=== PATIENT | male | born 1955 | race Caucasian/White ===

== ENCOUNTER 2017-07-28 15:13 | Inpatient (IN) | payer BC ==
[~2017-07-28] VITALS: Ht 185.4 cm; Wt 226.8 kg
--- NOTE | ~2017-07-28 | H ---
[facility] [place] [address] HISTORY AND PHYSICAL Name: DAWIT RIOJAS Room #: 433-I ADM IN M.R.#: [id number] Admission: 07/28/17 Attend Phys: Dhruv Ortiz MD, FAAF Discharge: Date of : 59 Report #: [id number] THIS REPORT FOR: //name// CC: Dhruv Ortiz DATE OF SERVICE: 07/28/2017 CHIEF COMPLAINT: Cellulitis, left lower leg. HISTORY OF PRESENT ILLNESS: The patient is a 61-year-old white male well known to me, has type 2 diabetes, venous insufficiency, obesity and chronic edema. He developed lower leg swelling bilaterally, worse on the left with cellulitis of the left lower leg 2 days prior to this Emergency Room admission. He was also ill at the time of his arrival and had had fever. Temperature is 99.8 in the Emergency Department, had been higher at home to 103 degrees. Venous Doppler study was negative for clot. He was admitted for IV antibiotics and management of his cellulitis. PAST MEDICAL HISTORY: Hypertension; arthritis; insulin, using diabetes; venous insufficiency; chronic low back pain; hip pain and lower extremity cellulitis. SURGERIES: Endovenous laser ablation of incompetent leg veins, umbilical hernia repair, tonsillectomy, laparoscopic cholecystectomy, toe amputations x 3, right meniscus flap repair and right foot foreign body exploration in 2013. MEDICATIONS: Metoprolol XL 25 mg p.o. daily, Lasix 40 mg p.o. daily, hydrocodone 5/325 one p.o. q. 4 hours p.r.n. pain, Humalog 40 units subQ with meals, glimepiride 4 mg p.o. b.i.d., Tekturna 300 mg p.o. daily, metformin 1000 mg p.o. t.i.d. with meals, multivitamin 1 p.o. daily and vitamin D 1000 units p.o. daily. ALLERGIES: FEELS POORLY WITH PERCOCET. SOCIAL HISTORY: , nonsmoker and nondrinker. 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 FAMILY HISTORY: Positive for diabetes, angina, heart failure, hypertension and heart attacks. REVIEW OF SYSTEMS: GENERAL: Positive for fever, malaise, left lower leg pain, redness and swelling. EYES: No visual changes. ENT: No problems with hearing, swallow, taste or smell. CARDIOVASCULAR: No chest pain or palpitations. RESPIRATORY: No difficulty breathing. [facility] [address] [place] [address] HISTORY AND PHYSICAL Name: DAWIT RIOJAS Room #: 433-I [facility] IN [facility]#: [id number] Admission: 07/28/17 Attend Phys: Dhruv Ortiz MD, FAAF Discharge: Date of : 59 Report #: [id number] GASTROINTESTINAL: No abdominal pain. GENITOURINARY: No problems urinating. MUSCULOSKELETAL: Obese. Bilateral lower extremity edema. Chronic skin changes bilaterally. Acute cellulitis of left lower leg. NEUROLOGIC: No paresis, paralysis or paresthesias. Has bilateral diabetic foot neuropathy. PSYCHIATRIC: No feelings of depression or disturbing thoughts. DERMATOLOGIC: Cellulitis of his left lower leg. Chronic skin changes bilaterally. Remainder of systems review is negative. OBJECTIVE: VITAL SIGNS: Temperature is 37.3, pulse 82, blood pressure 217/101, pulse ox on room air is 96%, respiratory rate is 20. He weighs 226.8 kg or 500 pounds. GENERAL: Pleasant white male, adult, in no acute distress. Speaks full sentences. Engaging in conversation. HEENT: Pupils equal, round and reactive to light and accommodation. Extraocular muscles are intact. Pharynx is unremarkable. NECK: Supple. COR: S1 and S2. CHEST: Clear. ABDOMEN: Soft and nontender. EXTREMITIES: He has bilateral skin changes with 2+ bipedal edema and cellulitis of the left lower leg. NEUROLOGIC: He is intact without focal neurologic deficit. LABORATORY EVALUATION: CBC: White count is 8.9; hemoglobin 14.8; hematocrit 45.2 and platelets 263,000. Chemistry: Sodium 137, potassium 3.9, chloride 101 and CO2 25. BUN 15 and creatinine 1.0. Estimated glomerular filtration rate 76. Glucose 289. Lactic acid is 4.4. Calcium is 9.5. Total bilirubin 0.6, direct bilirubin 0.2. AST is 53, ALT is 79 and alk phos is 69. Total protein 8.0 and albumin 2.8. Lipase is 100. Ultrasound of the left lower extremity was negative for DVT. Chest x-ray: Limited study without definite acute process. ASSESSMENT: Cellulitis of the left lower leg; venous insufficiency; obesity and type 2 diabetes, using insulin. PLAN: Admit to hospital. IV vancomycin started in Emergency Department. Blood cultures obtained. Add moist heat. Follow closely. By: 0218 0345 Dhruv Ortiz MD, FAAFP, FACEP /nt
--- NOTE | ~2017-07-28 | D ---
[facility] [place] [address] DISCHARGE SUMMARY Name: DAWIT RIOJAS Room #: 433-I [facility] IN M.R.#: [id number] Admission: 07/28/17 Attend Phys: [facility]iz MD, [facility] Dis[facility]: 07/31/17 Date of : 59 Report #: [id number] THIS REPORT FOR: //name// CC: Dhruv Ortiz MD DATE OF SERVICE: 07/31/2017 HISTORY: A 61-year-old white male was admitted with worsening redness and swelling of his left lower leg following a bump to the leg two days before admission. His past history included morbid obesity, peripheral venous insufficiency, DM type 2, chronic low back pain and hip pain, previous cellulitis of the legs and endovenous laser ablation of incompetent leg veins, umbilical hernia repair, tonsillectomy, laparoscopic cholecystectomy, toe amputation x 3, right meniscus flap repair and right foot foreign body exploration in 2013. HOSPITAL COURSE: Initial physical revealed an uncomfortable, febrile, overweight white male. He was alert and oriented. BP was high initially at 217/101. Lungs were clear. Cardiac exam negative. Abdomen was obese, soft, and nontender. Legs revealed significant swelling and redness in the left lower leg with some chronic redness in the right lower leg. White count 8900 and hemoglobin 14.8. Sodium 137, potassium 3.9, CO2 of 25, BUN 15, creatinine 1.0, and estimated GFR 76. Blood sugar 289, lactic acid is high at 4.4, calcium 9.5, total bilirubin 0.6. Liver enzyme slightly high, GOT 53, GPT 79, and albumin low at 2.8. Doppler of the left lower leg was negative for DVT. Chest x-ray showed no acute process. The patient was admitted on IV vancomycin and IV fluids. He subsequently improved. His discharge hemoglobin was 13.5, white count 8000. Sodium 136, potassium 3.9, CO2 of 27, BUN 11, creatinine 0.8, estimated GFR 99. Blood sugar in the 200s. GOT and GPT elevated 88 and 180. Albumin low at 2.6. On 07/31/2017, his vital signs were stable. He was afebrile and his blood pressure was 150/79. He was discharged on a low salt diet, on glimepiride 4 mg b.i.d., Tekturna 300 mg daily, metformin 1000 mg t.i.d., multivitamin 1 daily, vitamin D 1000 units daily, hydrocodone 5/325 one to two q.6 h. p.r.n. pain, Humalog 40 units subq before meals, doxycycline 100 mg b.i.d. for at least 10 days, tizanidine 4 mg t.i.d. p.r.n. back pain, furosemide 40 mg daily, metoprolol succinate 25 mg, Toprol-XL 25 mg daily. He is to see Dr. Ortiz within 2 weeks. Followup exam is to keep his left leg elevated. Redness and swelling were improving, but still present at time of discharge. He will watch closely for continued improvement. FINAL DIAGNOSES: [address] [address] DISCHARGE SUMMARY Name: DAWIT RIOJAS Room #: 433-I [facility] IN [facility].#: [id number] Admission: 07/28/17 Attend Phys: Dhruv Ortiz MD, FAAF Discharge: 07/31/17 Date of : 59 Report #: [id number] 1. Cellulitis of left lower extremity. 2. Hypertension. 3. Peripheral venous insufficiency. 4. Moderate protein-calorie malnutrition. 5. Elevated transaminase, probably secondary to fatty liver. 6. Morbid obesity. 7. Type 2 diabetes with vasculopathy. <ELECTRONICALLY SIGNED> By: Luis Alberto Ferguson DO 08/07/17 0749 [id number] [id number] Luis Alberto Ferguson DO /nt
[~2017-07-28 15:13] MED LIST: ACTOS 30 MG TAB30 MG PO; ADIPEX-P37.5 M1 PO; ALTACE10 M1 PO; AMARYL4 MG PO; AMLODIPINE BESY10 MG PO; ANDROGEL SPRAY; ANDROGEL75 GM TOP; DAILY VITE1 EACH PO; GLUCOPHAGE1000 MG PO; GLUCOPHAGE850 MG PO; HUMALOG MI100 UNIT/2 SUBQ; HUMALOG PE100 UNIT/M SUBQ; HYDROCODONE-AP1 EAC6 PO; KEFLEX500 MG PO; LASIX 40 MG TAB40 M1 PO; LEVEMIR SUBQ; METOPROLOL SUCC25 M1 PO; MOTION RELIEF25 MG PO; NEURONTIN 300300 M1 PO; NORCO 5-325 TA1 EACH PO; NOVOLOG100 UNIT/1 SUBQ; PREDNISONE 20 M20 M1 PO; TEKTURNA300 MG PO; TRESIBA FL100 UNIT/1 SQ; VENTOLIN HFA 1818 GM INH; VITAMIN D1000 UNI1 PO; ZOCOR40 MG PO; ZOFRAN 4 MG ORAL4 MG PO
[2017-07-28 15:14] VITALS: BP 217/101
[2017-07-28 16:17] LABS: ABSOLUTE NEUTROPHILS 5.5 thou/uL (1.4-8.2); BASOPHILS 1.3 % (0.0-2.0); EOSINOPHILS 4.1 % (0.0-3.0); HEMATOCRIT 45.2 % (42.0-52.0); HEMOGLOBIN 14.8 gm/dL (14.0-18.0); LYMPHOCYTES 22.2 % (24.0-44.0); MCH 28.5 pg (26.0-34.0); MCHC 32.7 g/dL (28.0-37.0); MCV 87.2 fL (80.0-100.0); MONOCYTES 10.7 % (1.0-8.0); PLATELET COUNT 263 thou/uL (150-400); POLYS 61.7 % (36.0-66.0); RBC 5.18 mil/uL (4.50-6.00); RDW 14.5 % (10.5-14.5); WBC 8.9 thou/uL (4.0-11.0)
[2017-07-28 16:24] LABS: MANUAL DIFF NO
[2017-07-28 16:29] LABS: CALCIUM 9.5 mg/dL (8.5-10.1); POTASSIUM 3.9 mmol/L (3.5-5.1)
[2017-07-28 16:34] LABS: ALBUMIN 2.8 g/dL (3.4-5.0); DIRECT BILIRUBIN 0.2 mg/dL (<0.1-0.3); TOTAL BILIRUBIN 0.6 mg/dL (<0.1-1.0)
[2017-07-28 16:43] VITALS: BP 217/101
[2017-07-28 17:20] VITALS: BP 114/72
[2017-07-28 17:58] VITALS: BP 114/72
[2017-07-28 18:03] VITALS: BP 151/68
[2017-07-28 19:21] VITALS: BP 156/80
[2017-07-29 00:15] VITALS: BP 165/80
[2017-07-29 03:46] VITALS: BP 155/76
[2017-07-29 06:10] LABS: HEMATOCRIT 40.6 % (42.0-52.0); MCH 28.3 pg (26.0-34.0); MCHC 32.1 g/dL (28.0-37.0); RBC 4.61 mil/uL (4.50-6.00); RDW 14.7 % (10.5-14.5)
[2017-07-29 06:27] LABS: CALCIUM 8.9 mg/dL (8.5-10.1); CREATININE 0.8 mg/dL (0.7-1.3); POTASSIUM 3.6 mmol/L (3.5-5.1)
[2017-07-29 08:00] VITALS: BP 161/88
[2017-07-29 16:00] VITALS: BP 180/79
[2017-07-29 19:54] VITALS: BP 183/74
[2017-07-30 03:23] VITALS: BP 180/92
[2017-07-30 07:18] VITALS: BP 167/75
[2017-07-30 15:53] VITALS: BP 179/88
[2017-07-30 19:58] VITALS: BP 170/73
[2017-07-31 03:23] VITALS: BP 150/79
[2017-07-31 06:13] LABS: HEMATOCRIT 42.9 % (42.0-52.0); HEMOGLOBIN 13.5 gm/dL (14.0-18.0); MCH 27.9 pg (26.0-34.0); MCHC 31.6 g/dL (28.0-37.0); MCV 88.3 fL (80.0-100.0); PLATELET COUNT 282 thou/uL (150-400); RBC 4.86 mil/uL (4.50-6.00); RDW 14.2 % (10.5-14.5)
[2017-07-31 06:19] LABS: MANUAL DIFF YES
[2017-07-31 06:31] LABS: ALBUMIN 2.6 g/dL (3.4-5.0); CREATININE 0.8 mg/dL (0.7-1.3); POTASSIUM 3.9 mmol/L (3.5-5.1); TOTAL BILIRUBIN 0.5 mg/dL (<0.1-1.0)
[2017-07-31] MEDS ORDERED: ZANAFLEX4 MG PO (07:59)
[2017-07-31] MEDS ORDERED: DOXYCYCLINE 10100 MG PO (07:59)
[2017-07-31 08:00] VITALS: BP 174/86
[2017-07-31] MEDS ORDERED: TOPROL XL25 MG PO (08:05)
[2017-07-31] MEDS ORDERED: LASIX 40 MG TAB40 M2 PO (08:05)
[2017-07-31 08:08] LABS: ABSOLUTE NEUTROPHILS 4.3 thou/uL (1.4-8.2); METAMYELOCYTES 2 %; TOTAL CELL COUNT 100
[2017-07-31 08:09] LABS: ANISOCYTOSIS SLIGHT
[2017-07-31 11:16] VITALS: BP 174/86
== END 2017-07-31 13:10 | disposition home or self-care (01) | DRG 602 ==
LOC: ER 15:13 → EROBS 16:22 → 4S 16:22 → ENTRNSPT 07-31 12:02 → EDTRNSPTSTS 07-31 12:06 → 4S 07-31 13:10
PROVIDERS: Internal Medicine; Nurse Practitioner
DX: L03.116 Cellulitis of left lower limb (principal); E43 Unspecified severe protein-calorie malnutrition; E87.2 Acidosis; Z68.44 Body mass index [BMI] 60.0-69.9, adult; I10 Essential (primary) hypertension; E11.9 Type 2 diabetes mellitus without complications; G89.29 Other chronic pain; M54.5 Low back pain; I87.2 Venous insufficiency (chronic) (peripheral); E66.01 Morbid (severe) obesity due to excess calories; Z79.899 Other long term (current) drug therapy; Z79.4 Long term (current) use of insulin; Z88.6 Allergy status to analgesic agent; Z90.49 Acquired absence of other specified parts of digestive tract; Z89.429 Acquired absence of other toe(s), unspecified side; Z91.09 Other allergy status, other than to drugs and biological substances; Z83.3 Family history of diabetes mellitus; Z82.49 Family history of ischemic heart disease and other diseases of the circulatory system; Z23 Encounter for immunization
CPT/HCPCS: 10100

== ENCOUNTER 2018-07-18 18:15 | Inpatient (IN) | payer OTHER, BC ==
[~2018-07-18] VITALS: Ht 185.4 cm; Wt 220.0 kg
--- NOTE | ~2018-07-18 | PATH ---
[facility] [address] [place] [address] PATHOLOGY RPT PROCEDURE Name: DAWIT RIOJAS Room #: 221-P DIS IN M.R.#: [id number] Admission: 07/18/18 Date of : 59 Discharge: 07/26/18 Report #: [id number] Path Case #: [id number] [facility] Accession Number: [id number] . 01 Material submitted: . LEFT GREAT TOE . 01 Clinical history: . Osteomyelitis . 02 Diagnosis: Left great toe, amputation: - Marked acute inflammation associated with osteonecrosis, compatible with a history of osteomyelitis. - Overlying skin showing marked acute inflammation, unremarkable as well as ulceration. - Bone at margin viable and unremarkable. (IUV/db; 07/26/18) LBQ/07/26/2018 . 02 Electronically signed: . Josselyn Dixon MD, Pathologist NPI- [id number] . 01 Gross description: . The specimen is received in formalin, labeled "Dawit Riojas, left great toe". Received is an amputated digit measuring 5.9 x 4.2 x 3.6 cm in greatest dimensions. The bone margin is jagged in appearance. The bone and soft tissue margins are inked black. The nail is present displaying a pale thomas to light thomas and severely thickened appearance. At the distal aspect of the specimen, there is a well-circumscribed, irregular in contour and butt-thomas lesion measuring 1.0 x 0.9 cm, which is 3.1 cm from the closest skin margin. The remainder of the epidermis is pale thomas to light thomas and flaky to sloughing in appearance. A full-thickness longitudinal cross-section through the lesion on the distal aspect is submitted in cassettes A1 through A3, from proximal to distal aspects, following decalcification. (CAA; 07/23/2018) QAC/QAC . 02 Pathologist provided ICD-10: M87.872 . 02 CPT . 340993, 135095 Specimen Comment: A courtesy copy of this report has been sent to Specimen Comment: [phone], [phone]. [address] [address] PATHOLOGY RPT PROCEDURE Name: DAWIT RIOJAS Room #: 221-P DIS IN M.R.#: [id number] Admission: 07/18/18 Date of : 59 Discharge: 07/26/18 Report #: [id number] Path Case #: [id number] Specimen Comment: Report sent to / DR RODRIGUES Specimen Comment: A duplicate report has been generated due to demographic updates. Performed at: [address], [place] [id number] MD Ousmane Morin MD Phone: [phone] Performed at: [address], [place], [place] [id number] MD Josselyn Dixon MD Phone: [phone]
--- NOTE | ~2018-07-18 | HC ---
[facility] [place] [address] CONSULTATION Name: DAWIT RIOJAS Room #: 221-P [facility] IN M.R.#: [id number] Admission: 07/18/18 Attend Phys: Dhruv Ortiz MD, [facility] Discharge: 07/26/18 Date of : 59 Report #: [id number] THIS REPORT FOR: //name// CC: Dhruv Ortiz DATE OF SERVICE: 07/19/2018 PERSONAL PHYSICIAN: Dhruv Ortiz MD CHIEF COMPLAINT: Cellulitic left foot and possible osteomyelitis, left great toe. HISTORY OF PRESENT ILLNESS: This is a 62-year-old white male who I have treated in the remote past for previous toe wounds, requiring amputation. The patient states that he bumped his left foot and great toe on a chair approximately 2 months ago and developed a blister. The patient went in and saw his primary care physician and was started on Bactrim times 1 month per the culture result. The patient states that the wound itself actually had been looking good until last evening when it started having drainage coming out of the foot with increased swelling and redness of the left great toe. The patient states that he does have tenderness in the left great toe and the bottom of his foot. The patient denies any other associated wounds at this time. PAST MEDICAL HISTORY: Hypertension, laparoscopic cholecystectomy, toe amputations times 3 in the past, insulin-dependent diabetes, venous insufficiency, chronic low back pain and hip pain due to an old work injury, history of cellulitis of lower extremities. CURRENT MEDICATIONS: Multiple. I reviewed the patient's medication list. DRUG ALLERGIES: OXYCODONE and TAPE. SOCIAL HISTORY: The patient does not smoke or drink alcohol. Lives at home with his . FAMILY HISTORY: Not pertinent to current medical condition. REVIEW OF SYSTEMS: CONSTITUTIONAL: The patient denies fevers or chills. NEUROLOGIC: The patient denies numbness, tingling in arms or legs. EYES: No complaints. ENT: The patient complains of mild sore throat for the past several weeks, but no difficulty swallowing. CARDIAC: The patient denies chest pain, palpitations. Does have chronic lower extremity edema. RESPIRATORY: The patient has a slight cough, nonproductive. Denies shortness [facility] [address] [place] [address] CONSULTATION Name: DAWIT RIOJAS Room #: 221-P [facility] IN .R.#: [id number] Admission: 07/18/18 Attend Phys: Dhruv Ortiz MD, FAAF Discharge: 07/26/18 Date of : 59 Report #: [id number] of breath or wheezes. GASTROINTESTINAL: The patient denies nausea, vomiting or abdominal pain. GENITOURINARY: The patient denies urgency or frequency. MUSCULOSKELETAL: The patient has pain in his left foot. SKIN: There are cellulitic changes of the left foot and enlargement of the left great toe. PHYSICAL EXAMINATION: VITAL SIGNS: Temperature is 36.8, pulse 87, respirations 18, BP 166/75. GENERAL: This is an alert and oriented times 3, obese white male who is in no obvious distress. HEENT: Normocephalic, atraumatic. Mucous membranes are moist. Pupils are round. Sclerae are white. NECK: Supple and nontender without JVD. BACK: Nontender. LUNGS: Clear. ABDOMEN: Soft, obese, otherwise nontender. EXTREMITIES: The patient moves all extremities without difficulty. The patient has 1+ dorsalis pedis and posterior tibial pulses. Evaluation of bilateral feet reveals multiple toe amputations. Evaluation of the left foot reveals an increased area of warmth, tenderness and pus draining from the medial aspect of the left great toe. Toe is tender and has bulbous swelling. Rest of the foot is warm to touch. There does not appear to be any redness extending up the leg. There is some fluctuance around the area of the left great toe. Right foot is without any open ulcerations or signs of infection. NEUROLOGIC: Cranial nerves 2-12 grossly intact. Motor and sensory grossly intact. LABORATORY VALUES: White count 13.5, hemoglobin 13.7. Sed rate 47. Glucose is 313. C-reactive protein is markedly elevated at 164.6. IMAGING DATA: X-ray of the left foot with attention to the left great toe reveals possible osteomyelitis of the distal tuft of the left great toe. MRI is pending as is arterial Dopplers. IMPRESSION: 1. Cellulitis, left foot with concern for osteomyelitis, left great toe. 2. Diabetes mellitus. 3. Obesity. 4. Generalized debility. PLAN: At this time, we will await the MRI results. Dr. Camacho has been consulted to see the patient as well who is actively seeing the patient in the past without amputations. Dr. Velasquez has been consulted for IV antibiotics. RECOMMENDATIONS: We will make sure we maximize the patient's oral protein [address] [address] CONSULTATION Name: DAWIT RIOJAS Room #: 221-P DIS IN M.R.#: [id number] Admission: 07/18/18 Attend Phys: Dhruv Ortiz MD, FAAF Discharge: 07/26/18 Date of : 59 Report #: [id number] supplementation for healing. We will utilize physical and occupational therapy for strengthening. We will continue all other current medications. We will continue to follow the patient while he is here. <ELECTRONICALLY SIGNED> By: Luis Robertson MD 08/03/18 1423 1524 2158 Luis Robertson MD /nt
--- NOTE | ~2018-07-18 | H ---
[facility] [place] [address] HISTORY AND PHYSICAL Name: DAWIT RIOJAS Room #: 457-P ADM IN M.R.#: [id number] Admission: 07/18/18 Attend Phys: Dhruv Ortiz MD, FAAF Discharge: Date of : 59 Report #: [id number] THIS REPORT FOR: //name// CC: Dhruv Robertson MD DATE OF SERVICE: 07/19/2018 CHIEF COMPLAINT: Left foot, left great toe pain. HISTORY OF PRESENT ILLNESS: The patient is a 62-year-old white male well known to me. I have been his primary care doctor for many years. He has type 2 diabetes, hypertension and morbid obesity. He has had difficulty with circulation in his feet with swelling and wounds. He has had several amputations in the past of toes approximately a week before this admission through the Emergency Department, he felt ill while watching some sporting events, after that he developed cellulitis of his foot. This developed into a wound of his left great toe and he felt ill on this day of admission, went to the Emergency Department at [facility] where x-rays showed likely osteomyelitis of his left great toe along with cellulitis of his left great toe and forefoot. He was admitted to hospital and IV antibiotics were instituted. PAST MEDICAL HISTORY: Tonsillectomy, hypertension, umbilical hernia repair, laparoscopic cholecystectomy, amputations of toes x 3, type 2 diabetes using insulin, venous insufficiency, cellulitis of lower extremities, chronic low back pain, hip pain, arthroscopic knee surgery, sleep apnea using CPAP. MEDICATIONS: Doxycycline 100 mg 1 p.o. b.i.d., Zanaflex 4 mg p.o. t.i.d. p.r.n. muscle spasm, Lasix 40 mg 1 p.o. q.a.m., metoprolol succinate 25 mg XL formulation 1 p.o. daily, [place] 5/325 one p.o. q. 4 hours p.r.n. pain, Humalog 40 units subcutaneous with meals, glimepiride 4 mg 1 p.o. b.i.d., Tekturna 300 mg 1 p.o. daily, metformin 1000 mg 1 p.o. b.i.d., multivitamin 1 p.o. daily, vitamin D 1000 international units 1 p.o. daily. ALLERGIES: OXYCODONE. 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 Nonsmoker. FAMILY HISTORY: Brother recently of myocardial infarction, had coronary artery disease. REVIEW OF SYSTEMS: GENERAL: He has felt poorly. [address] [address] HISTORY AND PHYSICAL Name: DAWIT RIOJAS Room #: 457-P [facility] IN M.R.#: [id number] Admission: 07/18/18 Attend Phys: Dhruv Ortiz MD, FAAF Discharge: Date of : 59 Report #: [id number] EYES: No visual changes. ENT: No problems with hearing, swallow, taste or smell. CARDIOVASCULAR: No chest pain or palpitations. RESPIRATORY: No difficulty breathing. GASTROINTESTINAL: No abdominal pain, some malaise. GENITOURINARY: No problems urinating. MUSCULOSKELETAL: Widespread arthritic changes. Morbid obesity, pain, swelling, redness of his left foot, especially great toe and also has a wound. NEUROLOGIC: Some diabetic peripheral neuropathic pain and paresthesias. PSYCHIATRIC: Frustrated, not depressed. DERMATOLOGIC: Cellulitis and left great toe ulcer with osteomyelitis involvement. Remainder of system review is negative. OBJECTIVE: VITAL SIGNS: Temperature 36.9, pulse 101, respirations 20, blood pressure 229/99, pulse ox on room air is 95%. His blood pressure does diminish significantly while in the Emergency Department without antihypertensive therapy per se. NEUROLOGIC: He is alert and oriented x 3. Speaks in full sentences. HEENT: Pupils equal, round, reactive to light and accommodation. Extraocular muscles intact. Pharynx unremarkable. NECK: Supple. COR: S1, S2. CHEST: Clear. ABDOMEN: Soft, nontender. EXTREMITIES: Large and edematous. He does have a crusting over the tip of his left great toe and plantar aspect as well. He has widespread erythema of this toe and forefoot in general. He has chronic stasis dermatitis. He does have distal pulses and his feet are warm. LABORATORY DATA: CBC: White count is 13.5, hemoglobin 13.7, hematocrit 40.6, platelets 248,000. Differential white count 79% segmented neutrophils, 5% lymphocytes, 14% monocytes, 1% eosinophils, 1% basophils, sed rate is 47. Blood cultures are drawn and pending at time of dictation. Chemistry: Sodium 131, potassium 4.6, chloride 95, CO2 of 27, anion gap is 9, BUN 11, creatinine 1.0. Estimated glomerular filtration rate 76. Glucose 313. Lactic acid 2.4, calcium 9.1. C-reactive protein 164.6. X-rays of the left foot done from the Emergency Department shows subtle periosteal reaction involving the terminal tuft of the first digit with overlying soft tissue defect, osteomyelitis of the terminal tuft is a concern. ASSESSMENT: Osteomyelitis, left great toe; cellulitis, left great toe and forefoot; stasis dermatitis; diabetes type 2, using insulin; hypertension; morbid obesity. [facility] [address] [place] [address] HISTORY AND PHYSICAL Name: DAWIT RIOJAS Room #: 457-P ADM IN M.R.#: [id number] Admission: 07/18/18 Attend Phys: Dhruv Ortiz MD, FAAF Discharge: Date of : 59 Report #: [id number] PLAN: Admit to the hospital. Antibiotics started in the Emergency Department. Consult Dr. Joe Velasquez, Infectious Disease specialist; Dr. Luis Robertson, employee placement specialist and Dr. Norris Camacho, orthopedic surgeon. By: 2317 0013 Dhruv Ortiz MD, FAAFP, FACEP /nt
--- NOTE | ~2018-07-18 | O ---
[facility] [place] [address] OPERATIVE REPORT Name: DAWIT RIOJAS Room #: 221-P ADM IN M.R.#: [id number] Admission: 07/18/18 Attend Phys: Dhruv Ortiz MD, FAAF Discharge: Date of : 59 Report #: [id number] THIS REPORT FOR: //name// CC: Dhruv Ortiz DATE OF SERVICE: 07/20/2018 SERVICE: Orthopedics. FACILITY: [facility]. SURGEON: Kashif Jones M.D. BLOCK HAND: Michelle Robles NP PREOPERATIVE DIAGNOSES: 1. Osteomyelitis, left great toe. 2. Nonhealing wound, left great toe. 3. Uncontrolled diabetes mellitus. POSTOPERATIVE DIAGNOSES: 1. Osteomyelitis, left great toe. 2. Nonhealing wound, left great toe. 3. Uncontrolled diabetes mellitus. PROCEDURE: Left first toe amputation. COMPLICATIONS: None. DRAINS: None. SPECIMENS: Great toe with wound culture. ANESTHESIA TYPE: Sedation with first ray block. HISTORY: The patient is a 62-year-old gentleman with a wound of the left great toe that had acute worsening over the weekend. He was admitted to the hospital and placed on IV antibiotics. He had an osteomyelitis of the great toe distal phalanx as well as cellulitis in the forefoot and mid foot. He was treated with rest, elevation and antibiotics and he had some interval improvement of the cellulitis. We had a discussion about ultimate treatment options. We recommended amputation of the toe after consultation with the wound care team as well. PROCEDURE IN DETAIL: After left lower extremity was correctly identified as the operative extremity in the preoperative holding area, the patient was taken to [facility] [address] [place] [address] OPERATIVE REPORT Name: DAWIT RIOJAS Room #: 221-P ADM IN M.R.#: [id number] Admission: 07/18/18 Attend Phys: Dhruv Ortiz MD, FAAF Discharge: Date of : 59 Report #: [id number] the operating room where monitored anesthetic care was initiated with the patient on BiPAP. He is already on an antibiotic regimen, so prophylaxis was not administered. Tourniquet was applied to the left calf. Left leg was prepped in a prepped and draped in standard sterile fashion. Timeout procedure was performed. Total of 16 mL of 0.25% Marcaine was used for a local anesthetic effect providing a first ray regional block by me after sterile prepping and draping. Then, a fishmouth-type incision was made over the proximal phalanx, which was proximal to any of the necrotic tissue. The necrosis involved the entire toe down to the distal phalanx. I did take wound culture specimen of the drainage due to his continued cellulitis to ensure that appropriate antibiotics have been selected. The dissection was taken down to the level of the proximal phalanx. An elevator was used to expose the bone and then, a bone cutter was used to transect the proximal phalanx at the mid shaft position. A rongeur was then used to smooth the rough edges and then, hemostasis was achieved. The wound was copiously irrigated and then it was close with 2-0 nylon sutures in an interrupted mattress suture technique. A well-padded sterile dressing was then applied to the left leg. The patient was awakened from anesthesia and taken to recovery room in stable condition. There were no complications and all counts were recorded as correct. <ELECTRONICALLY SIGNED> By: Kashif Jones MD 07/25/182031 16 54 Kashif Jones MD /nt
--- NOTE | ~2018-07-18 | HC ---
[facility] [place] [address] CONSULTATION Name: DAWIT RIOJAS Room #: 457-P [facility] IN M.R.#: [id number] Admission: 07/18/18 Attend Phys: Dhruv Ortiz MD, FAAF Discharge: Date of : 59 Report #: [id number] THIS REPORT FOR: //name// CC: Dhruv Ortiz DATE OF SERVICE: 07/19/2018 ATTENDING PHYSICIAN: Dhruv Ortiz MD. REASON FOR CONSULTATION: Left diabetic foot infection. HISTORY OF PRESENT ILLNESS: A 62-year-old white man who is admitted with cellulitic changes, left foot and possible osteomyelitis, left big toe. Problem ongoing for several days to weeks, much worse in the last couple of days. Has received some treatment with Bactrim before. PAST MEDICAL AND SURGICAL HISTORY: Tonsillectomy. Hypertension. Umbilical hernia repair. Laparoscopic cholecystectomy. Previous toes amputation. Venous insufficiency. Stasis dermatitis of lower extremities. DRUG ALLERGIES: OXYCODONE. MEDICATIONS: The patient is currently on treatment with vancomycin 1250 mg IV every 8 hours, has received Zosyn 4.5 grams IV single dose. He is receiving some intravenous normal saline 500 mL. SOCIAL HISTORY: See H and P, old records. FAMILY HISTORY: See H and P, old records. REVIEW OF SYSTEMS: As above and see H and P. PHYSICAL EXAMINATION: GENERAL: Morbidly obese white man, not toxic looking, no distress. VITAL SIGNS: Temperature 98.2, pulse 87, respirations 18, BP 166/75, height 6 feet 1 inch, weight 485 pounds. HEENMT: Within range. NECK: Short, difficult to examine. LUNGS: Clear. HEART: S1, S2. No gallop or murmur. ABDOMEN: Soft, no masses or megaly. GENITALIA AND RECTAL: Deferred. EXTREMITIES: Stasis dermatitis both lower extremities. The left foot presents drainage on the lateral aspect of the left big toe. The left big toe is rather swollen, possible with underlying osteomyelitis despite negative plain x-rays. Status post partial amputation, left second toe and amputation, left third toe. [address] [address] CONSULTATION Name: DAWIT RIOJAS Room #: 457-P ADM IN M.R.#: [id number] Admission: 07/18/18 Attend Phys: Dhruv Ortiz MD, FAAF Discharge: Date of : 59 Report #: [id number] I cannot detect peripheral pulses. The right foot exam revealed remote amputations of the right second and third toes. NEUROLOGIC: Grossly within normal limits. LABORATORY DATA: Sodium 131, potassium 4.6, BUN 16, creatinine 1, glucose 313. Lactic acid 2.4 on admission. CRP 164.6 mg/dL. WBC 13,500, hemoglobin 13.7 g/dL, platelets 248,000. ESR 47 mm per hour. No urinalysis. Blood cultures were obtained. No wound culture, we will obtain those. RADIOLOGY EVALUATION: X-ray of the foot revealed no obvious bony process, subtle periosteal reaction involving terminal tuft first digit with overlying soft tissues defects noted. ASSESSMENT: 1. Left diabetic foot infection with possible osteomyelitis, left big toe. 2. Remote amputations of left second, third and right second and third toes. 3. Stasis dermatitis. 4. Diabetes mellitus. 5. Morbid obesity. SUGGESTIONS: Recommend discontinue vancomycin and Zosyn, treat the patient with combination of meropenem and Zyvox, proceed with MRI and ultrasound arterial circulation. If osteomyelitis, possibly amputation may be the recommendation. Dr. Ortiz, thank you for requesting my suggestions. <ELECTRONICALLY SIGNED> By: Joe Velasquez MD 07/20/18 0848 1138 1243 Joe Velasquez MD /nt
[~2018-07-18 18:15] MED LIST changes: +DOXYCYCLINE 10100 MG PO; +LASIX 40 MG TAB40 M2 PO; +NORCO 10-325 T1 EACH PO; +TOPROL XL25 MG PO; +ZANAFLEX4 MG PO
[2018-07-18 18:16] VITALS: BP 229/99
[2018-07-18 20:21] LABS: HEMATOCRIT 40.6 % (42.0-52.0); HEMOGLOBIN 13.7 gm/dL (14.0-18.0); MCH 29.4 pg (26.0-34.0); MCHC 33.6 g/dL (28.0-37.0); MCV 87.4 fL (80.0-100.0); PLATELET COUNT 248 thou/uL (150-400); RBC 4.65 mil/uL (4.50-6.00); RDW 13.9 % (10.5-14.5); WBC 13.5 thou/uL (4.0-11.0)
[2018-07-18 20:32] LABS: CALCIUM 9.1 mg/dL (8.5-10.1); POTASSIUM 4.6 mmol/L (3.5-5.1)
[2018-07-18 20:54] LABS: ABSOLUTE NEUTROPHILS 10.7 thou/uL (1.4-8.2)
[2018-07-18 21:45] VITALS: BP 165/79
[2018-07-18 21:52] VITALS: BP 162/52
[2018-07-18 22:45] VITALS: BP 139/64
[2018-07-19 03:08] VITALS: BP 131/55
[2018-07-19 07:30] VITALS: BP 166/75
[2018-07-19 16:27] VITALS: BP 187/69
[2018-07-19 19:43] VITALS: BP 181/84
[2018-07-20 02:17] VITALS: BP 152/65
[2018-07-20 05:57] LABS: HEMATOCRIT 39.3 % (42.0-52.0); MCH 29.3 pg (26.0-34.0); MCHC 33.2 g/dL (28.0-37.0); MCV 88.3 fL (80.0-100.0); PLATELET COUNT 259 thou/uL (150-400); RBC 4.45 mil/uL (4.50-6.00); RDW 14.3 % (10.5-14.5); WBC 12.6 thou/uL (4.0-11.0)
[2018-07-20 06:03] LABS: CALCIUM 9.2 mg/dL (8.5-10.1); POTASSIUM 4.3 mmol/L (3.5-5.1)
[2018-07-20 06:32] LABS: ABSOLUTE NEUTROPHILS 8.9 thou/uL (1.4-8.2)
[2018-07-20 06:33] LABS: PLATELET ESTIMATE NORMAL
[2018-07-20 08:00] VITALS: BP 186/74
[2018-07-20 19:06] VITALS: BP 186/58
[2018-07-21] VITALS (9 sets, daily range): BP systolic 145–1303; BP diastolic 59–79
[2018-07-22 03:46] LABS: HEMATOCRIT 38.4 % (42.0-52.0); HEMOGLOBIN 12.5 gm/dL (14.0-18.0); MCH 28.6 pg (26.0-34.0); MCHC 32.7 g/dL (28.0-37.0); MCV 87.7 fL (80.0-100.0); RBC 4.38 mil/uL (4.50-6.00); RDW 14.6 % (10.5-14.5); WBC 8.8 thou/uL (4.0-11.0)
[2018-07-22 03:59] LABS: CALCIUM 8.7 mg/dL (8.5-10.1); CREATININE 0.8 mg/dL (0.7-1.3); POTASSIUM 4.2 mmol/L (3.5-5.1)
[2018-07-22 05:44] VITALS: BP 146/69
[2018-07-22 08:09] VITALS: BP 162/73
[2018-07-22 14:00] VITALS: BP 194/76
[2018-07-22 19:32] VITALS: BP 156/70
[2018-07-23 04:59] VITALS: BP 149/74
[2018-07-23 07:31] VITALS: BP 151/64
[2018-07-23 14:43] VITALS: BP 157/74
[2018-07-23 19:35] VITALS: BP 163/80
[2018-07-24 06:34] VITALS: BP 162/62
[2018-07-24 07:45] VITALS: BP 149/60
[2018-07-24 07:58] LABS: ABSOLUTE NEUTROPHILS 5.1 thou/uL (1.4-8.2); BASOPHILS 1.3 % (0.0-2.0); EOSINOPHILS 5.1 % (0.0-3.0); HEMATOCRIT 38.9 % (42.0-52.0); HEMOGLOBIN 12.7 gm/dL (14.0-18.0); LYMPHOCYTES 21.2 % (24.0-44.0); MCH 28.9 pg (26.0-34.0); MCHC 32.8 g/dL (28.0-37.0); MCV 88.2 fL (80.0-100.0); MONOCYTES 9.8 % (1.0-8.0); PLATELET COUNT 336 thou/uL (150-400); POLYS 62.6 % (36.0-66.0); RBC 4.41 mil/uL (4.50-6.00); RDW 14.4 % (10.5-14.5); WBC 8.2 thou/uL (4.0-11.0)
[2018-07-24 08:08] LABS: ALBUMIN 2.1 g/dL (3.4-5.0); CREATININE 0.8 mg/dL (0.7-1.3); POTASSIUM 4.2 mmol/L (3.5-5.1); TOTAL BILIRUBIN 0.4 mg/dL (<0.1-1.0); TOTAL PROTEIN 7.2 g/dL (6.4-8.2)
[2018-07-24 13:14] VITALS: BP 182/89
[2018-07-24 19:48] VITALS: BP 159/94
[2018-07-24 20:34] VITALS: BP 178/81
[2018-07-24 22:25] VITALS: BP 185/89
[2018-07-25 07:37] VITALS: BP 164/71
[2018-07-25 20:05] VITALS: BP 158/79
[2018-07-26 08:16] VITALS: BP 172/69
[2018-07-26] MEDS ORDERED: XARELTO10 MG PO (08:20)
[2018-07-26 14:53] VITALS: BP 172/69
== END 2018-07-26 18:54 | disposition home or self-care (01) | DRG 617 ==
LOC: ER 18:15 → 4W 21:21 → EROBS 21:21 → 4W 22:24 → SICU 07-24 12:25 → ENTRNSPT 07-26 16:37 → SICU 07-26 18:54
PROVIDERS: Family Medicine; Orthopaedic Surgery Sports Medicine; Student in an Organized Health Care Education/Training Program
PROC: 0Y6Q0Z1 Detachment at Left 1st Toe, High, Open Approach (ICD-10-PCS; principal; 2018-07-20)
PROC: 05HD33Z Insertion of Infusion Device into Right Cephalic Vein, Percutaneous Approach (ICD-10-PCS; 2018-07-22)
DX: E11.69 Type 2 diabetes mellitus with other specified complication (principal); L03.116 Cellulitis of left lower limb; M86.8X7 Other osteomyelitis, ankle and foot; Z68.44 Body mass index [BMI] 60.0-69.9, adult; I13.0 Hypertensive heart and chronic kidney disease with heart failure and stage 1 through stage 4 chronic kidney disease, or unspecified chronic kidney disease; G89.29 Other chronic pain; M54.5 Low back pain; M25.559 Pain in unspecified hip; I87.2 Venous insufficiency (chronic) (peripheral); E66.01 Morbid (severe) obesity due to excess calories; E11.65 Type 2 diabetes mellitus with hyperglycemia; J47.9 Bronchiectasis, uncomplicated; E11.22 Type 2 diabetes mellitus with diabetic chronic kidney disease; I50.9 Heart failure, unspecified; N18.9 Chronic kidney disease, unspecified; I48.0 Paroxysmal atrial fibrillation; E11.40 Type 2 diabetes mellitus with diabetic neuropathy, unspecified; B95.61 Methicillin susceptible Staphylococcus aureus infection as the cause of diseases classified elsewhere; B95.1 Streptococcus, group B, as the cause of diseases classified elsewhere; Z90.49 Acquired absence of other specified parts of digestive tract; B96.4 Proteus (mirabilis) (morganii) as the cause of diseases classified elsewhere; Z79.4 Long term (current) use of insulin; Z88.6 Allergy status to analgesic agent; Z89.421 Acquired absence of other right toe(s); Z28.21 Immunization not carried out because of patient refusal; Z79.899 Other long term (current) drug therapy
CPT/HCPCS: 10045; 15002; 27000; 50010; 50101; 50386; 56525; 56527; 57091; 57180; 62110; 62850; 70005

== ENCOUNTER → 2018-08-16 | Outpatient (CLI) | payer OTHER, BC ==
[~2018-08-16] MED LIST changes: +XARELTO10 MG PO
== END ==
LOC: HYPER 08-09 09:14
DX: T87.89 Other complications of amputation stump (principal); E11.69 Type 2 diabetes mellitus with other specified complication; M86.09 Acute hematogenous osteomyelitis, multiple sites; E11.610 Type 2 diabetes mellitus with diabetic neuropathic arthropathy; E11.65 Type 2 diabetes mellitus with hyperglycemia; E66.01 Morbid (severe) obesity due to excess calories; G47.30 Sleep apnea, unspecified; I10 Essential (primary) hypertension; I87.2 Venous insufficiency (chronic) (peripheral); Z79.4 Long term (current) use of insulin; Z68.44 Body mass index [BMI] 60.0-69.9, adult; Z79.84 Long term (current) use of oral hypoglycemic drugs; Y83.5 Amputation of limb(s) as the cause of abnormal reaction of the patient, or of later complication, without mention of misadventure at the time of the procedure

== ENCOUNTER → 2018-09-06 | Outpatient (CLI) | payer OTHER, BC | LOC: HYPER 06:52 | DX: T87.89 Other complications of amputation stump (principal); S90.425A Blister (nonthermal), left lesser toe(s), initial encounter; E11.69 Type 2 diabetes mellitus with other specified complication; M86.09 Acute hematogenous osteomyelitis, multiple sites; E11.610 Type 2 diabetes mellitus with diabetic neuropathic arthropathy; E11.65 Type 2 diabetes mellitus with hyperglycemia; E66.01 Morbid (severe) obesity due to excess calories; G47.30 Sleep apnea, unspecified; I10 Essential (primary) hypertension; I87.2 Venous insufficiency (chronic) (peripheral); Z79.84 Long term (current) use of oral hypoglycemic drugs; Z79.4 Long term (current) use of insulin; Z68.44 Body mass index [BMI] 60.0-69.9, adult; X58.XXXA Exposure to other specified factors, initial encounter; Y93.89 Activity, other specified; Y92.89 Other specified places as the place of occurrence of the external cause; Y99.8 Other external cause status; Y83.5 Amputation of limb(s) as the cause of abnormal reaction of the patient, or of later complication, without mention of misadventure at the time of the procedure ==

== ENCOUNTER → 2018-09-27 | Outpatient (CLI) | payer OTHER, BC | LOC: HYPER 09-20 06:56 | DX: T87.89 Other complications of amputation stump (principal); S90.425D Blister (nonthermal), left lesser toe(s), subsequent encounter; E11.610 Type 2 diabetes mellitus with diabetic neuropathic arthropathy; E11.65 Type 2 diabetes mellitus with hyperglycemia; E11.69 Type 2 diabetes mellitus with other specified complication; M86.09 Acute hematogenous osteomyelitis, multiple sites; E66.01 Morbid (severe) obesity due to excess calories; I87.2 Venous insufficiency (chronic) (peripheral); I10 Essential (primary) hypertension; G47.30 Sleep apnea, unspecified; Z79.4 Long term (current) use of insulin; Z79.84 Long term (current) use of oral hypoglycemic drugs; Z68.44 Body mass index [BMI] 60.0-69.9, adult; X58.XXXD Exposure to other specified factors, subsequent encounter; Y83.5 Amputation of limb(s) as the cause of abnormal reaction of the patient, or of later complication, without mention of misadventure at the time of the procedure ==

== ENCOUNTER 2019-03-01 12:47 | Emergency (ER) | payer OTHER, BC ==
[~2019-03-01] VITALS: Ht 185.4 cm; Wt 214.3 kg
[2019-03-01 13:44] LABS: ABSOLUTE NEUTROPHILS 4.7 thou/uL (1.4-8.2); EOSINOPHILS 6.1 % (0.0-3.0); HEMATOCRIT 41.2 % (42.0-52.0); HEMOGLOBIN 13.5 gm/dL (14.0-18.0); LYMPHOCYTES 24.4 % (24.0-44.0); MCHC 32.7 g/dL (28.0-37.0); MCV 88.6 fL (80.0-100.0); MONOCYTES 10.1 % (1.0-8.0); PLATELET COUNT 242 thou/uL (150-400); POLYS 58.4 % (36.0-66.0); RBC 4.65 mil/uL (4.50-6.00); RDW 14.7 % (10.5-14.5)
[2019-03-01 13:49] LABS: ANION GAP 9 mmol/L (7-16); BUN 20 mg/dL (7-18); CALCIUM 9.3 mg/dL (8.5-10.1); CHLORIDE 103 mmol/L (98-107); CO2 28 mmol/L (21-32); CREATININE 0.9 mg/dL (0.7-1.3); GLUCOSE 93 mg/dL (74-106); SODIUM 140 mmol/L (136-145)
[2019-03-01 13:58] LABS: ALBUMIN 3.1 g/dL (3.4-5.0); SGOT 25 U/L (15-37); SGPT 47 U/L (30-65); TOTAL BILIRUBIN 0.4 mg/dL (<0.1-1.0); TOTAL PROTEIN 7.6 g/dL (6.4-8.2); TROPONIN-I <0.06 ng/mL (<0.06)
[2019-03-01 15:00] VITALS: BP 177/70
--- NOTE | 2019-03-02 07:51 | EKG ---
[place] [address] [employer] [place] [address] ELECTROCARDIOGRAM REPORT Name: DAWIT RIOJAS Room #: DEP ELIZA Koo#: [id number] ������������������ Admission: 03/01/19 ������������������ Attend Phys: Discharge: 03/01/19 ������������������ Date of : 59 Report #: [id number] ����������������������������������������������������������������� [id number] THIS REPORT FOR: //name// [facility] ED Test Date: 2019-03-01 Test Time: 13:10:48 Pat Name: DAWIT RIOJAS Department: Room: Gender: Financial Professional: [facility] : 1955 Requested By: Kashif Umana Order Number: [id number] MD: German Almodovar Measurements Intervals [place] Rate: 72 P: 22 [place]: 186 QRS: -41 QRSD: 109 T: 17 QT: 400 QTc: 438 Interpretive Statements Sinus rhythm Left anterior hemiblock Poor R wave progression Right ventricular conduction delay Compared to ECG 10/02/2016 09:36:58 no significant change was found Electronically Signed On 03-02-2019 7:50:58 CDT by German Almodovar [email or web address] ��������������������������������������������� <ELECTRONICALLY SIGNED> ���������������������������������������� By: German Almodovar MD, [facility] ��������������������������������������������� 03/02/19 0750 1310 1310 German Almodovar MD, FACC /EPI
== END 2019-03-01 15:00 | disposition home or self-care (01) ==
LOC: ER 12:47
PROVIDERS: Emergency Medicine
DX: R20.2 Paresthesia of skin (principal); R51 Headache; I10 Essential (primary) hypertension; E11.9 Type 2 diabetes mellitus without complications; Z90.49 Acquired absence of other specified parts of digestive tract; Z88.5 Allergy status to narcotic agent

== ENCOUNTER 2019-06-24 06:50 | Inpatient (IN) | payer OTHER, BC ==
[~2019-06-24] VITALS: Ht 185.4 cm; Wt 186.0 kg
--- NOTE | ~2019-06-24 | HC ---
[facility] [place] [address] [place] [address] CONSULTATION Name: DAWIT RIOJAS Room #: 438-P [facility] IN M.R.#: [id number] Admission: 06/24/19 Attend Phys: Ross Webb MD, F Discharge: Date of : 59 Report #: [id number] THIS REPORT FOR: //name// CC: Dhruv Webb MD DATE OF SERVICE: 06/24/2019 CHIEF COMPLAINT: Morbid obesity, now status post gastric sleeve surgery by Dr. Webb. HISTORY OF PRESENT ILLNESS: The patient is a 63-year-old white male, well known to me, as I have provided his primary medical care for many years. He is morbidly obese, has type 2 diabetes and hypertension. This morning, he underwent gastric sleeve bariatric surgery by Dr. Ross Webb and I am asked to provide medical management postoperatively. He is feeling well in anticipation of the surgery. Over the past year, he has lost approximately 126 pounds on his own with the aids of some medications as well as u a protein shake. Blood sugar and blood pressure are both very well controlled leading up to this surgery. PAST MEDICAL AND SURGICAL HISTORY: Type 2 diabetes; hypertension; obesity; low back injury; old work injury with chronic low back pain; arthroscopic knee surgery with right meniscus flap repair; sleep apnea, uses CPAP; vitamin D deficiency; venous insufficiency; C5 disease (healed leg ulcers), endovenous laser ablation surgery, toe amputations x3; tonsillectomy; umbilical hernia repair; laparoscopic cholecystectomy and I and D, right foot foreign body, 06/09/2014. MEDICATIONS: Lasix 40 mg 1 p.o. q.a.m., Toprol-XL 25 mg 1 p.o. daily, Humalog insulin 40 units subcutaneous t.i.d. with meals, glimepiride 4 mg 1 p.o. b.i.d. Tekturna 300 mg 1 p.o. daily, metformin 1000 mg 1 p.o. b.i.d., multivitamin 1 p.o. daily, vitamin D 1000 International Units p.o. daily and Zanaflex 4 mg 1 p.o. b.i.d. p.r.n. back spasms. ALLERGIES: To TAPE and OXYCODONE. FAMILY HISTORY: Positive for arthritis, diabetes, heart disease and hypertension. Father at age 49, cardiopulmonary arrest, had been a heavy smoker and worked 3 jobs. 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 Nonsmoker, nondrinker. REVIEW OF SYSTEMS: [address] [address] CONSULTATION Name: DAWIT RIOJAS Room #: 438-P [facility] IN M.R.#: [id number] Admission: 06/24/19 Attend Phys: Ross Webb MD, F Discharge: Date of : 59 Report #: [id number] GENERAL: No fever, chills, nausea, vomiting, diarrhea. EYES: No visual changes. ENT: No problems with hearing, swallow, taste or smell. CARDIOVASCULAR: No chest pain or palpitations. RESPIRATORY: No difficulty breathing. GASTROINTESTINAL: Postoperative incision pain and pain associated with the surgery, well controlled presently with Dilaudid. GENITOURINARY: No difficulty urinating. MUSCULOSKELETAL: Widespread polyarticular joint pain. NEUROLOGIC: Bilateral lower leg paresthesias. PSYCHIATRIC: No disturbing thoughts. DERMATOLOGIC: No disturbing lesions or rash. He does have chronic stasis dermatitis of both lower legs, better since his dramatic weight loss. Remainder of system review is negative. OBJECTIVE: VITAL SIGNS: Stable. He is afebrile. Blood pressure slightly elevated, 156/86. He is in no acute distress. HEENT: Pupils equal, round, reactive to light and accommodation. Extraocular muscles intact. Pharynx unremarkable. NECK: Supple. COR: S1, S2. CHEST: Clear. ABDOMEN: Soft, obese. Nontender to light palpation. EXTREMITIES: Chronic stasis changes, several toes surgically absent. He has acrocyanosis of both lower legs. His legs are large, but not edematous. LABORATORY DATA: Reviewed. CBC and CMP are normal. ASSESSMENT: Morbid obesity, now status post gastric sleeve surgery by Dr. Webb earlier today, type 2 diabetes, hypertension, venous insufficiency, sleep apnea, using CPAP. PLAN/RECOMMENDATIONS: Agree with present regimen. He is n.p.o. following his surgery. When he is able to eat, need to monitor blood sugars, currently receiving normal saline at 125 mL an hour. A.m. labs, CBC, BMP already ordered. Will likely go home soon if able to tolerate p.o., very likely tomorrow. Thank you for the consultation. We will follow closely. By: 2318 0024 Dhruv Ortiz MD, FAAFP, FACEP /nt
[~2019-06-24 06:50] MED LIST changes: +VITAMIN D2000 UNIT PO
[2019-06-24 07:30] LABS: HEMATOCRIT 45.1 % (42.0-52.0); HEMOGLOBIN 14.9 gm/dL (14.0-18.0); MCH 29.1 pg (26.0-34.0); MCV 88.2 fL (80.0-100.0); RBC 5.11 mil/uL (4.50-6.00); RDW 14.6 % (10.5-14.5); WBC 7.9 thou/uL (4.0-11.0)
[2019-06-24 07:36] LABS: CALCIUM 9.5 mg/dL (8.5-10.1); CREATININE 0.8 mg/dL (0.7-1.3)
[2019-06-24 07:42] LABS: ALBUMIN 3.8 g/dL (3.4-5.0); TOTAL BILIRUBIN 0.8 mg/dL (<0.1-1.0); TOTAL PROTEIN 8.3 g/dL (6.4-8.2)
[2019-06-24 08:06] VITALS: BP 159/75
[2019-06-24 15:57] VITALS: BP 159/75
--- NOTE | 2019-06-24 16:17 | NUR ---
INITIAL ASSESMENT: Pt evaluated for d/c planning needs. Reviewed chart and spoke with nurse, pt, spouse and several family members. Pt lives in house with spouse and was independent with ADL's prior to admission. Pt had gastric sleeve surgery today. Received telephone call from [facility] stating they are signed up to see pt on d/c from hospital. Pt and spouse are agreeable with plans. Pt has cane, walker, w/c and CPAP at home. Plan is for pt to return home with [facility] [facility]. Please fax discharge orders and discharge summary to [facility]. PPS [phone]; fax [phone]
--- NOTE | 2019-06-24 17:58 | NUR ---
PT CAME FROM SURGERY. S/P LAP GASTRIC SLEEVE WITH . WAS CONSULTED FOR MEDICAL MANAGEMENT AND SEEN PT AT BEDSIDE. VANDANA TAMEZ ON, SCD ON. STRICT NPO FOR NOW. AT BEDSIDE AT ALL TIMES. LAP SITES X 5 CDI WITH DERMABOND. NO S/S ACUTE DISTRESS NOTED OR REPORTED AT THIS TIME. WILL CONT TO MONITOR FOR ANY CHANGES IN CONDITION.
[2019-06-24 19:25] VITALS: BP 155/66
--- NOTE | 2019-06-25 03:05 | NUR ---
ASSESSMENT COMPLETED.PT C/O GEN PAIN,MANAGED WITH MED.PT UP WITH ASSIST X1 AND WALKER TO BSC,PT DID WELL.PT'S AT BEDSIDE.PT WITH FIVE LAP SITES,C/D/I. IVF AND IV ABX GIVEN ORDERED.PT ABLE TO MAKE HIS NEEDS KNOWN.PT RESTING ON HIS BED AT THIS TIME.CALL LIGHT WITHIN REACH.
[2019-06-25 06:48] LABS: ABSOLUTE NEUTROPHILS 8.1 thou/uL (1.4-8.2); BASOPHILS 0.4 % (0.0-2.0); EOSINOPHILS 0.2 % (0.0-3.0); HEMATOCRIT 42.9 % (42.0-52.0); HEMOGLOBIN 13.8 gm/dL (14.0-18.0); LYMPHOCYTES 14.7 % (24.0-44.0); MCHC 32.1 g/dL (28.0-37.0); MCV 90.1 fL (80.0-100.0); MONOCYTES 9.8 % (1.0-8.0); PLATELET COUNT 272 thou/uL (150-400); POLYS 74.9 % (36.0-66.0); RBC 4.76 mil/uL (4.50-6.00); WBC 10.8 thou/uL (4.0-11.0)
[2019-06-25 06:51] LABS: CALCIUM 8.7 mg/dL (8.5-10.1); CREATININE 0.9 mg/dL (0.7-1.3); POTASSIUM 3.8 mmol/L (3.5-5.1)
[2019-06-25 16:04] VITALS: BP 159/75
--- NOTE | 2019-06-28 13:07 | PATH ---
[facility] [address] [place] [address] PATHOLOGY RPT PROCEDURE Name: DAWIT RIOJAS Room #: 438-P DIS IN M.R.#: [id number] Admission: 06/24/19 Date of : 59 Discharge: 06/25/19 Report #: [id number] Path Case #: [id number] [facility] Accession Number: [id number] . 01 Material submitted: . stomach - GASTRIC SLEEVE . 01 Clinical history: . Morbid (severe) obesity due to excess calories . 02 Diagnosis: Stomach, gastric sleeve, laparoscopic sleeve gastrectomy: - No significant diagnostic abnormalities present, history of morbid obesity. (IUV:pit; 06/28/2019) QTP 06/28/2019 1103 Local . 02 Electronically signed: . Josselyn Dixon MD, Pathologist NPI- [id number] . 01 Gross description: . The specimen is received in formalin, labeled "Dawit Riojas, gastric sleeve". Received is a partial gastrectomy specimen with a stapled margin of resection measuring 21.8 x 5.8 x 4.3 cm in greatest dimensions. The serosal surface is pink-thomas to pink-butt and shaggy in appearance. Opening the specimen reveals a butt-thomas, granular-appearing mucosa with normal rugal folds. No distinct nodules or lesions are noted grossly. The specimen is submitted representatively in cassette A1. (CAA; 06/27/2019) QAC/QAC 06/27/2019 0919 Local . 02 Pathologist provided ICD-10: E66.01 . 02 CPT . 906631 Specimen Comment: A courtesy copy of this report has been sent to [phone], [phone] Specimen Comment: [phone] Specimen Comment: Report sent to / DR RODRIGUES Performed at: [address] [id number] MD Ousmane Morin MD Phone: [phone] Performed at: [address] [address] PATHOLOGY RPT PROCEDURE Name: VANDANA RIOJASJACOB CONRAD Room #: 438-P DIS IN M.R.#: [id number] Admission: 06/24/19 Date of : 59 Discharge: 06/25/19 Report #: [id number] Path Case #: [id number] [address] [place], [place] [id number] MD Josselyn Dixon MD Phone: [phone]
== END 2019-06-25 16:30 | disposition home health service (06) | DRG 621 ==
LOC: TBA 06:50 → PRE 09:11 → 4S 12:28 → PRE 13:02 → 4S 06-25 16:30
PROVIDERS: ADMIT Surgery
DX: E66.01 Morbid (severe) obesity due to excess calories (principal); Z68.43 Body mass index [BMI] 50.0-59.9, adult; M19.90 Unspecified osteoarthritis, unspecified site; K80.20 Calculus of gallbladder without cholecystitis without obstruction; E11.9 Type 2 diabetes mellitus without complications; I10 Essential (primary) hypertension; G89.29 Other chronic pain; M54.5 Low back pain; Z89.429 Acquired absence of other toe(s), unspecified side; Z90.49 Acquired absence of other specified parts of digestive tract; Z88.6 Allergy status to analgesic agent; Z82.61 Family history of arthritis; Z83.3 Family history of diabetes mellitus; Z82.49 Family history of ischemic heart disease and other diseases of the circulatory system
CPT/HCPCS: 10102; 50010; 50101; 50222; 50249; 50386; 50555; 50739; 50740; 50962; 51436; 51437; 51489; 52182; 52265; 53307; 53311; 54022; 54118; 55245; 56462; 56525; 56526; 57092; 62110; 62900; 70005

== ENCOUNTER 2019-08-07 21:01 | Inpatient (IN) | payer OTHER, BC ==
[~2019-08-07] VITALS: Ht 185.4 cm; Wt 169.2 kg
[2019-08-07 21:04] VITALS: BP 130/79
[2019-08-07] MEDS ORDERED: ALTACE 1.25 M1.25 MG (21:09)
[2019-08-07] MEDS ORDERED: HUMALOG100 UNIT/1 SUBQ (21:10)
[2019-08-07 21:41] LABS: ABSOLUTE NEUTROPHILS 8.3 thou/uL (1.4-8.2); BASOPHILS 1.4 % (0.0-2.0); EOSINOPHILS 0.8 % (0.0-3.0); HEMOGLOBIN 15.8 gm/dL (14.0-18.0); LYMPHOCYTES 18.8 % (24.0-44.0); MONOCYTES 10.4 % (1.0-8.0); PLATELET COUNT 211 thou/uL (150-400); POLYS 68.6 % (36.0-66.0); RBC 5.46 mil/uL (4.50-6.00); RDW 14.5 % (10.5-14.5); WBC 12.1 thou/uL (4.0-11.0)
[2019-08-07 21:48] LABS: ANION GAP 9 mmol/L (7-16); BUN 14 mg/dL (7-18); CALCIUM 9.7 mg/dL (8.5-10.1); CHLORIDE 101 mmol/L (98-107); CO2 24 mmol/L (21-32); GLUCOSE 126 mg/dL (74-106); POTASSIUM 3.7 mmol/L (3.5-5.1); SODIUM 134 mmol/L (136-145)
--- NOTE | 2019-08-07 21:53 | NUR ---
RT NOTIFIED ONCE AGAIN FOR BREATHING TREATMENT. STATED, "I KNOW" AND THEN HUNG UP. ARRIVED SHORTLY AFTER TO BEDSIDE
[2019-08-07 21:59] LABS: APTT 32.3 Seconds (24.5-32.8); INR 1.6; PROTIME 17.1 Seconds (9.3-11.4)
[2019-08-07 22:00] LABS: ALBUMIN 3.2 g/dL (3.4-5.0); MAGNESIUM 1.7 mg/dL (1.8-2.4); PHOSPHORUS 2.8 mg/dL (2.5-4.9); SGOT 29 U/L (15-37); SGPT 36 U/L (30-65); TOTAL PROTEIN 8.3 g/dL (6.4-8.2); TROPONIN-I <0.06 ng/mL (<0.06)
[2019-08-07 22:06] LABS: D-DIMER 13.85 ug/mLFEU (0.19-0.50)
--- NOTE | 2019-08-07 22:41 | NUR ---
PHARMACY SENT ANTIBIOTICS TO BE STARTED, HOWEVER PT WAS OFF UNIT RECIEVING AN ULTRASOUND. ANTIBIOTICS WILL BE STARTED UPON HIS RETURN.
[2019-08-07 22:55] VITALS: BP 125/75
--- NOTE | 2019-08-07 22:58 | NUR ---
COMPLETED HAND OFF TOOL AND SENT TO FLOOR AT THIS TIME.
--- NOTE | 2019-08-07 23:54 | NUR ---
GAVE REPORT TO MACARIO PEREYRA ON AT THIS TIME.
[2019-08-08 01:45] VITALS: BP 134/44
--- NOTE | 2019-08-08 01:49 | NUR ---
REPORT UPDATED AND GIVEN TO MACARIO PEREYRA ON 3W.
[2019-08-08 02:20] VITALS: BP 102/49
[2019-08-08 04:18] VITALS: BP 113/49
--- NOTE | 2019-08-08 05:34 | NUR ---
Patient arrived to around 3:30. He was oriented to the unit, consents were signed, and admission documentation completed. Nursing will continue to monitor.
[2019-08-08 07:37] VITALS: BP 102/36
--- NOTE | 2019-08-08 08:52 | EKG ---
[place] [address] [facility] [place] [address] ELECTROCARDIOGRAM REPORT Name: DAWIT RIOJAS Room #: 355-P ADM IN M.R.#: [id number] Admission: 08/07/19 Attend Phys: Dhruv Ortiz MD, FAAF Discharge: Date of : 59 Report #: [id number] THIS REPORT FOR: //name// [facility] ED Test Date: 2019-08-07 Test Time: 21:09:53 Pat Name: DAWIT RIOJAS Department: Room: [facility] Gender: M Wall Covering Contractor: RONAL : 1955 Requested By: Agustin Pyle Order Number: [id number] MD: German Almodovar Measurements Intervals [place] Rate: 92 P: 6 [place]: 181 QRS: -68 QRSD: 96 T: -10 QT: 409 QTc: 507 Interpretive Statements Sinus rhythm Left anterior fascicular block Poor R wave progression Nonspecific T wave abnormality Prolonged QT interval Baseline wander in lead(s) V2 Compared to ECG 03/01/2019 13:10:48 T wave abnormality is new Prolonged QT interval now present Electronically Signed On 08-08-2019 8:52:00 PROPOSITION PLAYER by German Almodovar [email or web address] <ELECTRONICALLY SIGNED> By: German Almodovar MD, [facility] 08/08/1950 08 08 German Almodovar MD, [facility] /EPI
--- NOTE | 2019-08-08 10:02 | NUR ---
INITIAL ASSESSMENT: Pt evaluated for d/c planning needs. Reviewed chart and spoke with nurse and pt. Pt is alert and oriented. Pt lives in house with spouse and was independent with ADL's prior to admission to the hospital. Pt was hospitalized at [facility] in May 2019 and returned home with [facility]. Spoke with intake at , and pt was d/c in July. They are able to accept pt back on service if needed. Pt has walker, w/c, CPAP and cane at home. Pt plans on returning home on d/c from hospital. Will remain available to assist as needed.
[2019-08-08 16:23] VITALS: BP 137/55
[2019-08-08 19:59] VITALS: BP 128/56
[2019-08-09 00:15] VITALS: BP 11/56; BP 111/56
[2019-08-09 04:12] VITALS: BP 142/52
--- NOTE | 2019-08-09 05:10 | NUR ---
PATIENT IS ADVANCING IN IS CARE PLAN. VITAL SIGNS STABLE WITH PATIENT HAVING NO COMPLAINTS OF NAUSEA. PATIENT DID COMPLAIN OF PAIN IN BACK WHICH WAS TREATED APPROPRIATELY THROUGH MEDICATION AND NON PHARMACOLOGICAL INTERVENTION. BREATHING STABLE ON OXYGEN EVIDENCED BY ASSESSMENT AND READINGS ON CONTINUOUS SATURATION MONITOR. PATIENT IS ALERT AND ORIENTED AND ABLE TO CALL APPROPRIATELY FOR NEEDS. CONTINUE PLAN OF CARE.
[2019-08-09 05:50] LABS: MCHC 32.2 g/dL (28.0-37.0); MCV 90.1 fL (80.0-100.0); PLATELET COUNT 167 thou/uL (150-400); RBC 4.33 mil/uL (4.50-6.00); RDW 14.9 % (10.5-14.5); WBC 6.9 thou/uL (4.0-11.0)
[2019-08-09 06:04] LABS: HEMOGLOBIN 12.6 gm/dL (14.0-18.0)
[2019-08-09 07:53] VITALS: BP 114/46
[2019-08-09 07:59] LABS: ABSOLUTE NEUTROPHILS 3.9 thou/uL (1.4-8.2)
[2019-08-09 08:00] LABS: ANISOCYTOSIS 1+
[2019-08-09 11:28] VITALS: BP 128/48
[2019-08-09 16:20] VITALS: BP 109/57
[2019-08-09 20:05] VITALS: BP 138/67
[2019-08-10 04:20] VITALS: BP 140/69
[2019-08-10 04:49] LABS: HEMATOCRIT 39.1 % (42.0-52.0); HEMOGLOBIN 12.6 gm/dL (14.0-18.0); MCH 29.1 pg (26.0-34.0); MCHC 32.3 g/dL (28.0-37.0); MCV 90.1 fL (80.0-100.0); PLATELET COUNT 169 thou/uL (150-400); RBC 4.34 mil/uL (4.50-6.00); RDW 15.1 % (10.5-14.5); WBC 6.6 thou/uL (4.0-11.0)
[2019-08-10 05:17] LABS: ALBUMIN 2.4 g/dL (3.4-5.0); CALCIUM 8.4 mg/dL (8.5-10.1); CREATININE 0.6 mg/dL (0.7-1.3); TOTAL BILIRUBIN 0.8 mg/dL (<0.1-1.0); TOTAL PROTEIN 6.3 g/dL (6.4-8.2)
[2019-08-10 05:29] LABS: POTASSIUM 3.4 mmol/L (3.5-5.1)
--- NOTE | 2019-08-10 05:44 | NUR ---
PATIENT IS ALERT AND ORIENTED. PATIENT IS BEDREST. PATIENT IS ON 2LNC.AND CPAPHS 2L BLEED IN. PATIENT IS 1 DEGREE AVB ON TELE. PATIENT HAS A PANIAGUA FOR RETENTION. PATIENT IS ACHS ACCUCHECKS. PATIENT HAS 5 HEALED LAP SITES. PATIENTS PAIN IS TREATED WITH PAIN MEDICATION. PATIENT IS RESTING COMFORTABLY IN BED. WCM. PATIENT IS PROGRESSING TO GOALS.
[2019-08-10 07:40] VITALS: BP 141/90
[2019-08-10 08:53] LABS: ABSOLUTE NEUTROPHILS 3.3 thou/uL (1.4-8.2); PLATELET ESTIMATE NORMAL
--- NOTE | 2019-08-10 10:45 | NUR ---
recommend replace Mg and K. recommend start MVI. recommend bowel regimen for constipation.
[2019-08-10 11:54] VITALS: BP 165/86
--- NOTE | 2019-08-10 15:45 | NUR ---
ASSUMED CARE OF PT AT 0700. PT AOX4 IN NO ACUTE DISTRESS. C/O SORENESS FROM COUGH. NPO FOR RENAL BIOPSY. DIALYZED FOR APPROX 2.5HRS - NO FLUIDS REMOVED. IR CALLED SAYING THEY ARE UNABLE TO GET PATIENT DONE TODAY DUE TO RECENT POWER OUTAGE AND INSTABILITY - WILL GO DOWN FOR BIOPSY AT APPROX 0800 TOMORROW (08/11). SUGARS WELL CONTROLLED. HYPERTENSIVE - LABETALOL GIVEN PRN. TO BE NPO AFTER MN FOR RENAL BIOPSY. HD ALSO PLANNED FOR TOMORROW. PT UNDERSTANDING AND AGREEABLE. PT PROGRESSING TOWARD POC GOALS.
[2019-08-10 16:24] VITALS: BP 153/75
[2019-08-10 21:25] VITALS: BP 144/59
[2019-08-11 04:24] VITALS: BP 123/67
--- NOTE | 2019-08-11 06:28 | NUR ---
FOLLOWING POC WITH [facility] ANTIBIOTICS. PT STATES HE IS FEELING MUCH BETTER. PT ONLY REQUEST SOME HELP WITH PAIN RELIEF 2X. PT A/0X4, USES THE CALL LIGHT TO CALL FOR NEEDS. STEF BED IN USE, AND ROOMING IN. HOURLY ROUNDING.
[2019-08-11 08:02] VITALS: BP 128/50
[2019-08-11 11:28] VITALS: BP 129/53
--- NOTE | 2019-08-11 11:43 | NUR ---
Nutrition update: Received surgery consult for bariatric vitamins, but nutrition consult specified request for outpatient dietitian Mandy Mojica. RD left voicemail message for outpatient RD at [phone] informing of pt. Also placed appropriate consult in EMR directed for outpatient RD.
--- NOTE | 2019-08-11 14:57 | NUR ---
SW reviewed chart and spoke with nursing. Pt is progressing towards goals for discharge. Plan is for pt to discharge home when medically stable. Pt to be discharged home on Eliquis. SW is following to assist as needed with discharge planning.
--- NOTE | 2019-08-11 16:10 | NUR ---
ASSUMED CARE OF PT AT 0700. PT AOX4 IN NO ACUTE DISTRESS. PLEASANT. BREATHING COMFORTABLY ON ROOM AIR. WAITING ON BLE DOPPLER. POSSIBLE D/C TOMORROW.
[2019-08-11 16:53] VITALS: BP 134/58
[2019-08-11 20:00] VITALS: BP 148/75
[2019-08-12 04:40] VITALS: BP 117/71
--- NOTE | 2019-08-12 05:04 | NUR ---
PT MAKING SLOW PROGRESS TOWARDS GOALS. PT STATING THAT HE FEELS HE IS BREATHING EASIER THAN WHEN HE CAME INTO THE HOSPITAL. X1 DOSE OF MORPHINE GIVEN FOR BACK PAIN. DOPPLER STUDY OR RIGHT LOWER EXTREMITY NOTED. CONTINUE TO MONITOR.
[2019-08-12 07:22] VITALS: BP 128/68
[2019-08-12 11:23] VITALS: BP 153/7
[2019-08-12 15:14] VITALS: BP 177/88
--- NOTE | 2019-08-12 15:47 | NUR ---
SW reviewed chart and spoke with nursing. Pt had doppler yesterday, which should partially to fully occlusive thrombus extending from the femoral vein to the popliteal vein. No discharge planned for today. Discharge plan is for pt to discharge home when medically stable. [facility] is following to assist as needed with discharge planning.
--- NOTE | 2019-08-12 18:31 | NUR ---
ASSUMEE PATIENT CARE AT 0700. A/O X4. DENIES PAIN. NO INTERVENTION FOR RIGHT DVT. ON BED REST.SLOWLY TOWARDS POC GOALS.
[2019-08-12 20:20] VITALS: BP 141/65
[2019-08-13 04:50] VITALS: BP 130/54
--- NOTE | 2019-08-13 06:37 | NUR ---
ASSUMED CARE AT 1900. PT REPORTS CHRONIC BACK PAIN, HAS ASKED FOR PAIN MEDS TWICE OVERNIGHT. LUNGS COARSE IN UPPER LOBES, DIMINISHED IN BASES; SATS IN MID 90'S ON RA WHILE AWAKE, AND AROUND 90-91% WHILE ASLEEP. DID NOT USE CPAP OVERNIGHT. LARGE URINE OUTPUT FROM PANIAGUA, PLAN TO REMOVE TODAY. NO OTHER CONCERNS, WILL CONTINUE TO MONITOR.
[2019-08-13 07:38] VITALS: BP 145/63
[2019-08-13 11:30] VITALS: BP 127/47
[2019-08-13] MEDS ORDERED: ELIQUIS5 MG PO (13:25)
[2019-08-13] MEDS ORDERED: AZITHROMYCIN 2250 MG PO (13:25)
[2019-08-13 15:57] VITALS: BP 142/60
[2019-08-13 17:56] VITALS: BP 142/60
--- NOTE | 2019-08-19 08:42 | H ---
[facility] [place] [address] HISTORY AND PHYSICAL Name: DAWIT RIOJAS Room #: 355-P [facility] IN M.R.#: [id number] Admission: 08/07/19 Attend Phys: Dhruv Ortiz MD, [facility] Discharge: 08/13/19 Date of : 59 Report #: [id number] THIS REPORT FOR: //name// CC: Dhruv Webb MD DATE OF SERVICE: 08/08/2019 CHIEF COMPLAINT: Multifocal pulmonary emboli, right leg DVT, community-acquired pneumonia. HISTORY OF PRESENT ILLNESS: The patient is a 63-year-old white male well known to me. He had recent gastric sleeve surgery with Dr. Webb 6 weeks ago. Over the last 6-7 days, he has been feeling poorly, has had some nondescript right leg pain, some progressive shortness of breath and fatigue. He notified me of these symptoms and I directed him to the Emergency Department at [facility] where CTA scanning showed multifocal pulmonary emboli and an extensive right leg DVT including femoral vein involvement. He also has a left-sided pneumonia. He was started on IV antibiotics and Lovenox and is admitted to my service. Pulmonary consult was requested and Dr. Barnett is following the patient from Pulmonology standpoint. PAST MEDICAL HISTORY: Tonsillectomy, hypertension, umbilical hernia repair, laparoscopic cholecystectomy, multiple toe amputations, right meniscal flap repair, diabetes type 2, incision and drainage right foot foreign body 06/09/2014, chronic low back pain and hip pain due to old work injury, cellulitis to lower extremity resolved, sleep apnea with CPAP, bilateral foot and lower leg neuropathy, gastric sleeve surgery 6 weeks ago. MEDICATIONS: Ramipril 1.25 mg p.o. daily, insulin sliding scale. ALLERGIES: OXYCODONE. 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 Lives at home with his . FAMILY HISTORY: Noncontributory. REVIEW OF SYSTEMS: GENERAL: He has felt poorly with malaise, fatigue. EYES: No visual changes. ENT: No problems with hearing, swallow, taste or smell. CARDIOVASCULAR: No chest pain. He has had some intervals of shortness of breath. GASTROINTESTINAL: No abdominal pain. [address] [address] HISTORY AND PHYSICAL Name: DAWIT RIOJAS ANAMARIA Room #: 355-[facility] IN M.R.#: [id number] Admission: 08/07/19 Attend Phys: Dhruv Ortiz MD, FAAF Discharge: 08/13/19 Date of : 59 Report #: [id number] GENITOURINARY: No problems urinating. MUSCULOSKELETAL: He has chronic back and joint pain. NEUROLOGIC: No paralysis, paresthesias or paresis. PSYCHIATRIC: Frustrated, not depressed. DERMATOLOGIC: He has chronic stasis changes both lower extremities. Remainder of system review is negative. OBJECTIVE: VITAL SIGNS: Temperature 36.6, pulse 93, respirations 18, blood pressure 130/79, pulse ox on room air is 94%. He is in no acute distress. Not using supplemental oxygen. HEENT: Pupils equal, round, reactive to light and accommodation. Extraocular muscles intact. Pharynx unremarkable. NECK: Supple. COR: S1, S2. CHEST: Decreased breath sounds, left hemithorax. ABDOMEN: Soft, nontender. EXTREMITIES: Large, but not edematous. He has a negative Homans sign bilaterally. NEUROLOGICAL: He is intact without focal deficit. LABORATORY EVALUATION: CBC: White count is 12.1, hemoglobin 15.8, hematocrit 48.0, platelets 211,000. Differential white count, 68.6 segmented neutrophils, 18.8 lymphocytes, 10.4% monocytes. Protime 17.1, INR 1.6, APTT 32.3. D-dimer 13.85. Serum chemistry: Sodium 134, potassium 3.7, chloride 101, CO2 of 24, anion gap 9, BUN 14, creatinine 1.0, estimated glomerular filtration rate 76. Glucose 126. Lactate is 2.6, calcium 9.7. Chest x-ray done from the Emergency Department shows findings suggesting mild left interstitial pneumonitis. CT scan chest with contrast angiography shows multifocal pulmonary thromboembolism with evidence of right heart strain, left lung infiltrates and/or atelectasis with greatest involvement of the left upper lobe. Ultrasound of the bilateral lower extremities, extensive occlusive DVT within the right femoral vein. No DVT identified in the left lower extremity. ASSESSMENT: 1. Multifocal pulmonary emboli. 2. Right leg deep venous thrombosis. 3. Left-sided pneumonia. 4. Type 2 diabetes. 5. Morbid obesity. 6. Hypertension. PLAN: Admit to hospital, anticoagulation with Lovenox and begin oral anticoagulation as well. Pulmonary consult working. IV antibiotics started in [facility] [address] [place] [address] HISTORY AND PHYSICAL Name: DAWIT RIOJAS Room #: 355-P [facility] IN M.R.#: [id number] Admission: 08/07/19 Attend Phys: Dhruv Ortiz MD, ML Discharge: 08/13/19 Date of : 59 Report #: [id number] the Emergency Department with Zithromax and Rocephin. Consult Dr. Webb as well. <ELECTRONICALLY SIGNED> By: Dhruv Ortiz MD, AJ, FACEP 08/19/19 0842 00 23 Dhruv Ortiz MD, AJ, FACEP /nt
== END 2019-08-13 18:51 | disposition home or self-care (01) | DRG 175 ==
LOC: ER 21:01 → EROBS 22:38 → 3W 22:38
PROVIDERS: Emergency Medicine; ADMIT Family Medicine
DX: I26.99 Other pulmonary embolism without acute cor pulmonale (principal); J18.9 Pneumonia, unspecified organism; J96.01 Acute respiratory failure with hypoxia; Z68.42 Body mass index [BMI] 45.0-49.9, adult; I82.4Z1 Acute embolism and thrombosis of unspecified deep veins of right distal lower extremity; E66.01 Morbid (severe) obesity due to excess calories; I10 Essential (primary) hypertension; G47.30 Sleep apnea, unspecified; G89.29 Other chronic pain; M54.5 Low back pain; M25.559 Pain in unspecified hip; E11.40 Type 2 diabetes mellitus with diabetic neuropathy, unspecified; Z90.3 Acquired absence of stomach [part of]; Z90.89 Acquired absence of other organs; Z90.49 Acquired absence of other specified parts of digestive tract; Z79.4 Long term (current) use of insulin; Z89.429 Acquired absence of other toe(s), unspecified side; Z79.84 Long term (current) use of oral hypoglycemic drugs; Z88.5 Allergy status to narcotic agent; Z79.899 Other long term (current) drug therapy; Z23 Encounter for immunization; Z82.49 Family history of ischemic heart disease and other diseases of the circulatory system; Z83.3 Family history of diabetes mellitus; Z83.6 Family history of other diseases of the respiratory system
CPT/HCPCS: 10879

== ENCOUNTER 2020-06-09 13:33 | Emergency (ER) | payer OTHER, BC ==
[~2020-06-09] VITALS: Ht 185.4 cm; Wt 140.6 kg
[~2020-06-09 13:33] MED LIST changes: +ALTACE 1.25 M1.25 MG; +AZITHROMYCIN 2250 MG PO; +ELIQUIS5 MG PO; +HUMALOG100 UNIT/1 SUBQ
[2020-06-09 13:49] VITALS: BP 131/78
== END 2020-06-09 16:30 | disposition home or self-care (01) ==
LOC: ER 13:33
DX: J06.9 Acute upper respiratory infection, unspecified (principal); Z20.828 Contact with and (suspected) exposure to other viral communicable diseases; I10 Essential (primary) hypertension; E11.9 Type 2 diabetes mellitus without complications; Z90.89 Acquired absence of other organs; Z90.49 Acquired absence of other specified parts of digestive tract; Z98.84 Bariatric surgery status; Z98.890 Other specified postprocedural states; Z89.429 Acquired absence of other toe(s), unspecified side; Z79.2 Long term (current) use of antibiotics; Z79.899 Other long term (current) drug therapy; Z79.4 Long term (current) use of insulin; Z88.8 Allergy status to other drugs, medicaments and biological substances

== ENCOUNTER 2020-09-26 14:57 | Inpatient (IN) | payer OTHER, BC ==
[~2020-09-26] VITALS: Ht 185.4 cm; Wt 142.4 kg
--- NOTE | ~2020-09-26 | EMS ---
[address] [address] EMS Patient Care Report Name: DAWIT RIOJAS Room #: REG EILZA Koo#: [id number] Admission: 09/26/20 Attend Phys: Discharge: Date of : 59 Report #: [id number] THIS REPORT FOR: //name// Report Transmitted: 09/26/2020 16:00 EMS Care Summary [facility] Incident [id number] @ 09/26/2020 14:16 Incident Location [address] [facility]/[place] [address] Patient DAWIT RIOJAS Male, 65 Years 1955 Patient Address [address] [facility]/[place] [address] Patient History Diabetes,Morbid Obesity, Patient Allergies Percocet, Patient Medications [place], Chief Complaint Pain in the knee Disposition Transported No Lights/Madeline Dispatch Reason Traumatic Injury Transported To [facility] Narrative [facility] dispatched for a male requesting an ambulance for transport to [facility]. Pt had a meniscus surgery 2 years prior and stated that he was [address] [address] EMS Patient Care Report Name: DAWIT RIOJAS Room #: REG ELIZA Koo#: [id number] Admission: 09/26/20 Attend Phys: Discharge: Date of : 59 Report #: [id number] standing still when he began to have pain in the same knee on the right side. Pt stated that as long as he does not put pressure on the knee then his pain is minimal. On scene found the pt sitting in a walker/wheelchair. Pt was Ao4. Airway was patent and free from obstruction. Breathing was non labored with bilateral chest rise and fall. Skin was pink warm and dry. Pt stated that he had limited mobility with the right leg due to the pain. Pt was assisted to his feet and turned to sit on the cot. Pt was secured to the cot using all straps and taken to the ambulance. Pt was taken to [facility] per his request. Pt remained AO4. Airway was clear and breathing was within normal limits. Skin was pink warm and dry. Pt stated that he had minimal pain on the cot and stated that when pressure is applied, pain will increase. No obvious deformities to the extremity noted. Pt was taken to triage on arrival and verbal report was given to nursing staff. Pt was assisted to a wheelchair and taken to the triage area. Pt signed for himself. Nurse signed to take over care of the pt and EMS returned to service. Initial Vitals @14:33P: 77,R: 16,BP: 147/77,Pain: 4/10,GCS: 15,CO: 0,SpO2: 100,Revised Trauma: 12, @14:47P: 75,R: 16,BP: 170/70,Pain: 2/10,GCS: 15,CO: 3,SpO2: 99,Revised Trauma: 12, Assessments @14:30MENTAL:Person Oriented,Time Oriented,Event Oriented,Place Oriented,SKIN:HEENT:Head/Face: No Abnormalities,LUNG SOUNDS:General: No Abnormalities,ABDOMEN:General: No Abnormalities,PELVIS//GI:No Abnormalities,EXTREMITIES:Right Leg: Other,Left Arm: No Abnormalities,Right Arm: No Abnormalities,Left Leg: No Abnormalities,PULSE:NEURO:No Abnormalities,@14:41MENTAL:No Abnormalities,SKIN:No Abnormalities,HEENT:Head/Face: No Abnormalities,LUNG SOUNDS:General: No Abnormalities,Left Upper: No Abnormalities,Right Upper: No Abnormalities,Left Lower: No Abnormalities,Right Lower: No Abnormalities,ABDOMEN:General: No Abnormalities,Left Upper: No Abnormalities,Right Upper: No Abnormalities,Left Lower: No Abnormalities,Right Lower: No Abnormalities,PELVIS//GI:No Abnormalities,EXTREMITIES:Right Leg: Other,Left Arm: No Abnormalities,Right Arm: No Abnormalities,Left Leg: No Abnormalities,PULSE:NEURO:No Abnormalities, Impression Extremity Pain Procedures @14:30ALS AssessmentResponse: UnchangedSucceeded@14:40ALS AssessmentResponse: UnchangedSucceeded [address] [address] EMS Patient Care Report Name: DAWIT RIOJAS ANAMARIA Room #: REG ELIZA Koo#: [id number] Admission: 09/26/20 Attend Phys: Discharge: Date of : 59 Report #: [id number] Timeline 14:12,Call Received 14:12,Psap Call 14:16,Dispatched 14:18,En Route 14:21,On Scene 14:22,At Patient 14:30,ALS Assessment,Response: UnchangedSucceeded, 14:32,Depart Scene 14:33,BP: 147/77 M,PULSE: 77,RR: 16 R,SPO2: 100 Ox,ETCO2: ,BG: ,PAIN: 4,GCS: 15, 14:40,ALS Assessment,Response: UnchangedSucceeded, 14:47,BP: 170/70 M,PULSE: 75,RR: 16 R,SPO2: 99 Ox,ETCO2: ,BG: ,PAIN: 2,GCS: 15, 14:53,At Destination 15:26,Call Closed Disclaimer v1.1 Copyright 2020 [employer] This EMS Care Summary contains data elements from the applicable legal record (which may be displayed differently). It is designed to provide pertinent information for the following purposes: continuity of care, clinical quality, and state data reporting. The complete legal record is available to ED staff and administrators of the receiving hospital in [employer]'s Patient Tracker. All data is provided "as is."
[2020-09-26 15:01] VITALS: BP 154/82
[2020-09-26] MEDS ORDERED: NORCO 10-325 T1 EACH PO (15:06)
[2020-09-26] MEDS ORDERED: STOOL SOFTENER240 MG PO (15:07)
[2020-09-26 18:35] LABS: ABSOLUTE NEUTROPHILS 4.2 thou/uL (1.4-8.2); EOSINOPHILS 6.1 % (0.0-3.0); HEMATOCRIT 42.9 % (42.0-52.0); HEMOGLOBIN 14.1 gm/dL (14.0-18.0); LYMPHOCYTES 26.6 % (24.0-44.0); MCH 29.3 pg (26.0-34.0); MCHC 32.8 g/dL (28.0-37.0); MCV 89.4 fL (80.0-100.0); MONOCYTES 9.3 % (1.0-8.0); PLATELET COUNT 240 thou/uL (150-400); RDW 14.9 % (10.5-14.5); WBC 7.3 thou/uL (4.0-11.0)
[2020-09-26 18:45] LABS: CREATININE 0.8 mg/dL (0.7-1.3); POTASSIUM 4.4 mmol/L (3.5-5.1)
[2020-09-27 05:51] VITALS: BP 117/56
[2020-09-27 13:57] VITALS: BP 140/85
--- NOTE | 2020-09-27 14:17 | NUR ---
ROOM THAT WAS PREVIOUSLY ASSIGNED NOT AVAILABLE AT THIS TIME PER TUFTING MACHINE OPERATOR SINGLE NEEDLE
--- NOTE | 2020-09-27 14:35 | NUR ---
65-year-old male here for right knee pain. Patient reports noticing a week prior that his knee was "popping" when he stood upright. Seen in the ED by orthopedic's who discussed NSAIDS, Corticosteroid injection, Viscosupplementaion and TKA, Pt reports not ever having a steroid injection and was injected in the ED with 80mg of Depomedrol into right knee. Patient was then deemed able to follow up as an outpatient in the office of [facility] at [phone]. Patient last seen by Case Management on 08-12-19 where discharged home with no needs. Patient is assessed in the record as A&O x 4 and CM will follow for discharge needs.
[2020-09-27 20:03] VITALS: BP 140/67
[2020-09-27 20:17] VITALS: BP 155/71
--- NOTE | 2020-09-27 20:32 | NUR ---
PATIENT ADMITTED TO ROOM 441 FROM ER AFTER REPORT. PT ALERT XS 4. PLEASANT AND COOPERTATIVE WITH CARE. ALL ADMISSION PAPERWORK INCLUDING SKIN ASSESSMENT COMPLETED. PT HAS NO OPEN AREAS. HAS TOES AMPUTATED FROM SUGERIES IN PAST HEALED. GIVEN PRN IV PUSH PAIN MED REQUESTED. V.S HEIGHT AND WEIGHT IN CHART. IV FLUIDS INFUSING ORDERED THROUGH RIGHT AC IV SITE. DR FLOREZ SAW PATIENT IN ER. PT TO HAVE PT OT THERAPIES. PT ROOM AIR PLEASANT AND COOPERATIVE WITH CARE. PT FULL CODE SCD'S PUT ON.
--- NOTE | 2020-09-27 23:05 | NUR ---
ASSUMED PT CARE AT AROUND 1915 HRS.PT IS PLEASANT. PAIN MEDS GIVEN FOR C/O BACK AND R KNEE.PT GETTING FENTANYL AND NORCO PRN. HE IS SATTING OKAY ON ROOM AIR. NO RESP PROBLEMS.AFEBRILE. DENIES NAUSEA OR VOMITING. SITS BY EDGE OF BED. SCDS IN PLACE. USES URINAL-GOOD U/O.WILL CONTINUE WITH POC TILL EOS.
--- NOTE | 2020-09-28 07:39 | H ---
[facility] [place] [address] HISTORY AND PHYSICAL Name: DAWIT RIOJAS Room #: 441-P ADM IN M.R.#: [id number] Admission: 09/26/20 Attend Phys: Dhruv Ortiz MD, FAAF Discharge: Date of : 59 Report #: [id number] THIS REPORT FOR: cc: Dhruv Ortiz MD FAAFP FACEP Dhruv Ortiz MD FAAFP FACEP Dhruv Ortiz MD FAA FACEP ~ DATE OF SERVICE: 09/26/2020 CHIEF COMPLAINT: Intractable right knee pain. HISTORY OF PRESENT ILLNESS: The patient is a 65-year-old white male, patient of mine for many years, who has advanced arthritis of his knees. He has been morbidly obese for decades. He has lost quite a bit of weight since gastric sleeve surgery with Dr. Ross Webb about a year ago. Last week, he stood and pivoted experienced acute pain in his right knee that has persisted. He has been unable to bear weight, staying in bed over the interval since his incident. He summoned an ambulance for transport to the Emergency Room at [facility], where x-rays of the right knee showed tricompartmental severe arthritis. He is admitted with intractable pain. Orthopedic consult with Dr. Darin Montalvo was requested. PAST MEDICAL HISTORY: Morbid obesity; type 2 diabetes; hypertension; venous insufficiency; chronic back and hip pain; cellulitis of lower extremities; sleep apnea, using CPAP; bilateral foot and lower leg neuropathy; right leg DVT; multifocal pulmonary emboli 2018. PAST SURGICAL HISTORY: Laparoscopic cholecystectomy, umbilical hernia repair, toe amputations, multiple right meniscus flap repair, I and D right foot foreign body in 2013, gastric sleeve in 05/2019, endovenous laser ablation great saphenous veins. MEDICATIONS: Prilosec 20 mg 1 p.o. daily, hydrocodone 5 mg q.6 hours p.r.n. ALLERGIES: PERCOCET (NAUSEA). SOCIAL HISTORY: He is , retired. 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 Nonsmoker, nondrinker. FAMILY HISTORY: Noncontributory. REVIEW OF SYSTEMS: GENERAL: No fever, chills, nausea, vomiting, diarrhea. EYES: No visual changes. ENT: No problems with hearing, swallow, taste or smell. CARDIOVASCULAR: No chest pain or palpitations. [address] [address] HISTORY AND PHYSICAL Name: DAWIT RIOJAS Room #: 441-P [facility] IN M.R.#: [id number] Admission: 09/26/20 Attend Phys: Dhruv Ortiz MD, FAAF Discharge: Date of : 59 Report #: [id number] RESPIRATORY: No difficulty breathing. GASTROINTESTINAL: No abdominal pain. He has been constipated. GENITOURINARY: No problems urinating. MUSCULOSKELETAL: He has intractable right knee pain. DERMATOLOGIC: He has slight excess skin, such as weight loss. NEUROLOGIC: No paresis or paralysis. He has some persistent bilateral lower extremity paresthesias and neuropathic pain. PSYCHIATRIC: Frustrated, not depressed. Remainder of system review is negative. OBJECTIVE: VITAL SIGNS: Temperature is 36.7, pulse 76, respirations 13, blood pressure 154/82, pulse ox on room air is 100%. GENERAL: He is in some discomfort with his right knee, but pain is particularly severe when he tries to stand and bear weight. HEENT: Pupils equal, round, reactive to light and accommodation. Extraocular muscles intact. Pharynx unremarkable. NECK: Supple. COR: S1, S2. CHEST: Clear. ABDOMEN: Soft, nontender. EXTREMITIES: No cyanosis, clubbing or edema. He is missing several digits on his feet. His right knee is swollen and tender at the anterior tibial tuberosity. NEUROLOGICAL: He is intact without focal deficit. LABORATORY EVALUATION: White count 7.3; hemoglobin 14.1; hematocrit 42.9; platelets 240,000. Serum chemistry: Sodium 139, potassium 4.4, chloride 105, CO2 of 24, BUN 24, creatinine 0.8, random glucose was 100, calcium 9.0. X-rays of the right knee show tricompartmental osteoarthritis, most severe in the patellofemoral compartment. There is a joint effusion. ASSESSMENT: Right knee pain/arthritis intractable pain. PLAN: Admit to hospital. Orthopedic Surgery consult requested with Dr. Darin Montalvo. Pain control. <ELECTRONICALLY SIGNED> By: Dhruv Ortiz MD, FAAFP, FACEP 09/28/20 0739 [id number] [id number] Dhruv Ortiz MD, FAAFP, FACEP /nt
[2020-09-28 07:44] VITALS: BP 151/85
--- NOTE | 2020-09-28 11:11 | NUR ---
ASSESSMENT-PT LIVES AT HOME WITH HIS JARETH WHO WORKS HERE IN DIETARY & THEIR CHILDREN. PT SAYS HE HAS LOST 220 POUNDS OVER TIME. PT HAS A WALKER, ROLLATOR, CPAP, CANE, WC AT HOME AND HE HAS BEEN USING THE CANE. JARETH SAYS THEY WILL MOST LIKELY HAVE A NIECE STAYING WITH THEM THAT CAN ASSIST. PT HAS HAD [facility] IN THE PAST. PT HAD HIS KNEE INJECTED YESTERDAY. AWAITING PHYSICAL THERAPY TO WORK WITH PT. WILL HOME WITH FAMILY AT MN. FOLLOWING TO ASSIST WITH DC PLANNING.
[2020-09-28 15:39] VITALS: BP 130/69
--- NOTE | 2020-09-28 18:14 | NUR ---
ASSUMED PATIENT CARE AT 0700. A/O X4. UP WITH WALKER WITH STEADY GAIT. DR RODRIGUES WILL DC PATIENT TOMORROW. PAIN MED FOR RIGHT KNEE PAIN. PROGRESSING TOWARDS POC GOALS.
[2020-09-28 19:13] LABS: URINE BILIRUBIN NEGATIVE (Negative); URINE BLOOD 3+ (Negative); URINE COLOR YELLOW; URINE GLUCOSE-RANDOM* NEGATIVE (Negative); URINE KETONES NEGATIVE (Negative); URINE PROTEIN (DIPSTICK) NEGATIVE (Negative); URINE SPECIFIC GRAVITY >= 1.030 (1.005-1.035)
[2020-09-28 19:18] LABS: URINE CLARITY SL HAZY; URINE LEUKOCYTES-REFLEX 2+ (Negative); URINE NITRITE-REFLEX POSITIVE (Negative)
[2020-09-28 19:20] LABS: BACTERIA-REFLEX >30 Many /HPF (None Seen); SQUAMOUS 4-10 Moderate /LPF (0-3); URINE RBC >20 Many /HPF (0-2); URINE WBC-REFLEX >25 Many /HPF (0-5)
[2020-09-28 19:21] LABS: CASTS None Seen /LPF (None Seen); CRYSTALS None Seen /LPF (None Seen)
[2020-09-28 19:41] VITALS: BP 143/73
[2020-09-29] MEDS ORDERED: OMEPRAZOLE 20 M20 M1 PO (08:02)
[2020-09-29] MEDS ORDERED: ELIQUIS5 MG PO (08:03)
--- NOTE | 2020-09-29 08:10 | NUR ---
RECEIVED CARE OF THIS PATIENT AT 1900. PATIENT ALERT AND ORIENTED X4. UP AD ENEDELIA. C/O PAIN, MED GIVEN. IV IN RFA. SLEPT MOST OF THE NIGHT.
[2020-09-29 08:24] VITALS: BP 155/79
[2020-09-29 14:35] VITALS: BP 155/79
--- NOTE | 2020-09-29 16:00 | NUR ---
PT ASSESSED AT START OF SHIFT. PT DOING MUCH BETTER NOW. ABLE TO AMBULATE USING WALKER. HAD STEROID SHOT PER DR. FLOREZ AND WILL SET UP SURGERY NEXT WEEK. DR. SHAFER IN THIS AM AND PT DISCHARGED THIS AFTERNOON TO HOME W/ ALL BELONGINGS.
== END 2020-09-29 15:02 | disposition home or self-care (01) | DRG 554 ==
LOC: ER 14:57 → EROBS 17:17 → 4S 17:17
PROVIDERS: Nurse Practitioner; ADMIT Family Medicine; ATTEND Family Medicine
DX: M17.11 Unilateral primary osteoarthritis, right knee (principal); Z68.41 Body mass index [BMI] 40.0-44.9, adult; I10 Essential (primary) hypertension; G89.29 Other chronic pain; R31.9 Hematuria, unspecified; E11.40 Type 2 diabetes mellitus with diabetic neuropathy, unspecified; R82.81 Pyuria; E66.9 Obesity, unspecified; M54.5 Low back pain; Z20.822 Contact with and (suspected) exposure to COVID-19; Z98.84 Bariatric surgery status; Z89.429 Acquired absence of other toe(s), unspecified side; Z79.899 Other long term (current) drug therapy; Z90.49 Acquired absence of other specified parts of digestive tract; Z88.8 Allergy status to other drugs, medicaments and biological substances; Z99.81 Dependence on supplemental oxygen; Z23 Encounter for immunization
CPT/HCPCS: 10195

== ENCOUNTER → 2020-10-22 | Outpatient (CLI) | payer OTHER, BC ==
[~2020-10-22] MED LIST changes: +OMEPRAZOLE 20 M20 M1 PO; +STOOL SOFTENER240 MG PO
== END ==
LOC: ULTRA 09:05
PROVIDERS: ATTEND Family Medicine
DX: R10.31 Right lower quadrant pain (principal)

== ENCOUNTER 2020-12-31 11:16 | Observation (INO) | payer OTHER, BC ==
[~2020-12-31] VITALS: Ht 185.4 cm; Wt 134.3 kg
[~2020-12-31 11:16] MED LIST changes: +METAMUCIL1 EAC1 PO
[2020-12-31 13:53] VITALS: BP 129/59
[2020-12-31 16:34] VITALS: BP 122/49
[2020-12-31] MEDS ORDERED: MUPIROCIN1 GM TOP (16:50)
[2020-12-31] MEDS ORDERED: BACTRIM DS TAB1 EACH PO (16:53)
--- NOTE | 2020-12-31 18:18 | NUR ---
ASSUMED PT CARE FROM PACU AT 1610. PT IS ALERT & ORIENTED X4. PT HAS IV SITE ON L FA 20 GAUGE. PT IS ON ROOM AIR. PT USES CANE AT HOME. FINISHED AMDISSION ASSESSMENT, HISTORY AND MEDICATION RECONCILIATION. SENT HOME MEDICATION IN THE PHARMACY. PT HAS R BRENDA DRESSING, TEDS, AND POLAR CARE. PT C/O OF PAIN 04/09. GIVEN PAIN MEDICATION PER PT REQUEST. FAMILY AT THE BEDSIDE. PT ON THE BED, BED ON THE LOWEST POSITION, SIDE RAILS UP, CALL LIGHT WITHIN REACH. WILL CONTINUE TO MONITOR PT. FOLLOW POC.
[2020-12-31 19:25] VITALS: BP 125/61
--- NOTE | 2021-01-01 03:02 | NUR ---
ASSUMED CARE OF PT AT 1900. PT IS A/O X4 AND IS UP WITH ASSISTANCE USING A WALKER AND GB. C/O PAIN TO RIGHT KNEE. PRN PAIN MEDICATION GIVEN DIRECTED. VSS. AFEBRILE. FALL PRECAUTIONS IN PLACE, CALL LIGHT IS WITHIN REACH. PT PROGRESSING TOWARDS PLAN OF CARE DC GOALS.
[2021-01-01 05:11] LABS: HEMATOCRIT 39.3 % (42.0-52.0); MCH 30.5 pg (26.0-34.0); MCV 92.3 fL (80.0-100.0); RBC 4.26 mil/uL (4.50-6.00); RDW 14.4 % (10.5-14.5); WBC 9.1 thou/uL (4.0-11.0)
[2021-01-01 07:59] VITALS: BP 126/68
--- NOTE | 2021-01-01 12:00 | NUR ---
PT ADMITTED RELATED TO RT TOTAL KNEE REPLACEMENT. CM REVIEWED CHART AND SPOKE WITH CARE TEAM. CM MET WITH PT AT BEDSIDE THIS DAY. PT APPEARED TO BE A&O X4. CM ROLE INTRODUCED. PT INDICATED HE RESIDES IN A HOUSE WITH HIS SPOUSE SON AND HIS FAMILY. PT INDICATED 2 STEPS TO ENTER AND NONE INSIDE. PT INDICATED HE HAD BEEN USING A CANE AT TIMES TEXTURE ARTIST. PT INDICATED HE HAS A FWW, 4WW, AND WC FOR USE AT HOME. PT INDICATED HE IS SET UP WITH OT PT AT [facility] IN Thursday. PT INDICATED HE PLANS TO RETURN HOME [place] MEDICALLY STABLE. CM FOLLOWING REGARDING DC PLANNING.
[2021-01-01 14:11] VITALS: BP 126/68
--- NOTE | 2021-01-01 14:38 | NUR ---
Assumed pt care at 7am.Pt in bed resting and waiting for breakfast.Assessment completed.vss.Pt wanted to ambulate in hallways today with therapist.Am meds given with breakfast and well tolerated.Family here to visit, updates given. Peggy Cut Off Machine Operator here and order noted.Pt will spend another night in hospital and dc in am.Angeli drsg to rt knee intact and ice replaced in polar pack.P0t up in chair resting at present without c/o.Will continue to monitor.
[2021-01-01 15:23] VITALS: BP 118/62
[2021-01-01 19:24] VITALS: BP 117/70
[2021-01-01 21:50] LABS: URINE BILIRUBIN NEGATIVE (Negative); URINE BLOOD NEGATIVE (Negative); URINE CLARITY CLEAR; URINE COLOR YELLOW; URINE GLUCOSE-RANDOM* 1+ (Negative); URINE KETONES NEGATIVE (Negative); URINE LEUKOCYTES-REFLEX NEGATIVE (Negative); URINE NITRITE-REFLEX NEGATIVE (Negative); URINE PROTEIN (DIPSTICK) NEGATIVE (Negative); URINE SPECIFIC GRAVITY 1.025 (1.005-1.035); URINE UROBILINOGEN 0.2 E.U./dl (0.2-1.0)
--- NOTE | 2021-01-02 02:33 | NUR ---
ASSESSED AT START OF SHIFT. PT RESTING IN BED. RATES PAIN 6/10 PAIN MEDICATION GIVEN. URINAL AT BEDSIDE. UA SENT DOWN TO LAB. VSS. CLEAR LUNGS SOUNDS. PT DENIES N/V. IV INTACT AND SL. PO FLUID ENCOURAGED. SCD'S, POLAR PACK, TEDHOSE IN PLACE. FALL PREC MAINTAINED AND WILL CONT TO MONITOR TILL EOS.
[2021-01-02 05:26] LABS: HEMATOCRIT 34.8 % (42.0-52.0); HEMOGLOBIN 11.6 gm/dL (14.0-18.0); MCH 31.1 pg (26.0-34.0); MCHC 33.4 g/dL (28.0-37.0); RBC 3.74 mil/uL (4.50-6.00); RDW 14.8 % (10.5-14.5); WBC 8.8 thou/uL (4.0-11.0)
[2021-01-02 07:20] VITALS: BP 122/52
--- NOTE | 2021-01-02 11:06 | NUR ---
CARE TEAM INDICATED THAT PT IS MEDICALLY STABLE TO DISCHARGE HOME THIS DAY. PT HAS ALL NEEDED DME. PT IS SET UP WITH OP THERAPY UPON DC. PT'S SPOUSE TO PROVIDE TRANSPORT HOME. NO OTHER CM INTERVENTION INDICATED. CASE CLOSED.
[2021-01-02 12:29] VITALS: BP 126/68
--- NOTE | 2021-01-02 13:27 | NUR ---
Assumed pt care at 7am.Pt in bed sound asleep but arousable. Pt woke up around 0830 fro breakfast and am care.Assessment completed. Am meds given and well tolerated.Oral pain med given prior to ambulated in hallways with therapist. Therapist cleared pt to dc home today.Dr Montalvo notified and agreed with pt dc .Dc summary compile and reviewed with pt and .Saline lock dc'd. Pt will be dc home in [place] before 1400.Pt in room getting ready for dc home. Will continue to monitor.
--- NOTE | 2021-01-12 08:21 | O ---
[facility] [place] [address] OPERATIVE REPORT Name: DAWIT RIOJAS Room #: 459-P [facility] Bola Koo#: [id number] Admission: 12/31/20 Attend Phys: Darin Montalvo MD Discharge: 01/02/21 Date of : 59 Report #: [id number] THIS REPORT FOR: cc: Dhruv Ortiz MD, FAAFP, FACEP, Douglas MD FAAFP FACEP Abraham, Scott M. MD ~ DOC #: [id number] Darin Montalvo MD DATE OF SERVICE: 12/31/2020 PREOPERATIVE DIAGNOSIS: Right knee osteoarthritis. POSTOPERATIVE DIAGNOSIS: Right knee osteoarthritis. PROCEDURE: Right total knee arthroplasty using Navio robotic assistance. SURGEON: Darin Montalvo MD. PLACEMENT SPECIALIST: Argentina Woods PA-C INDICATION FOR PLACEMENT SPECIALIST: Throughout the case, extensive retraction and manipulation of the knee was required. This was afforded to me by my assistant nurse manager. ANESTHESIA: LMA with an adductor canal block. IMPLANTS: A [employer] size 7 Journey II BCS Oxinium femur, size 7, tibia size 12 constrained polyethylene, size 35 patella. TOURNIQUET TIME: 60 minutes. ESTIMATED BLOOD LOSS: 25 mL COMPLICATIONS: None. SPECIMENS: None. CONDITION UPON LEAVING: Stable. INDICATIONS FOR PROCEDURE: The patient is a 65-year-old gentleman with severe right knee osteoarthritis. He had failed conservative measures for this and after discussion with him, he elected for right total knee arthroplasty. DESCRIPTION OF PROCEDURE: Risks, benefits, alternatives, complications were discussed in detail with the patient including but not limited to risk of anesthesia, risk of damage to nerves, arteries, blood vessels, risk for infection, bleeding, risk for continued knee pain, need for reoperation. [address] [address] OPERATIVE REPORT Name: DAWIT RIOJAS Room #: 459-P FLEX Koo#: [id number] Admission: 12/31/20 Attend Phys: Darin Montalvo MD Discharge: 01/02/21 Date of : 59 Report #: [id number] Informed consent was obtained from the patient. Right knee was appropriately marked in the preoperative holding area. IV Ancef was given for preoperative antibiotics. He was brought to the operating room and placed in the supine position on the operating room table. LMA anesthesia was induced without complication. Tourniquet was placed on the right thigh. The right lower extremity was prepped and draped in normal sterile fashion. Timeout was performed properly identifying the patient and procedure as well as the instrumentation and implants. All in the operating room in agreement. Right lower extremity was exsanguinated, tourniquet was inflated. Tourniquet time was 60 minutes. Standard midline approach to the knee was made with a 10 blade through the skin. Dissection was taken down sharply to the fascia with Bovie cautery. Sharp dissection was taken down to the fascia and deep flaps were developed medially and laterally. A fresh 10 blade was used to make a medial parapatellar arthrotomy and the knee was inspected. There was severe tricompartmental osteoarthritis. ACL and PCL were removed sharply. Reference pins were placed in the femur and the tibia. The knee was then digitally mapped using Opsmatic robotic system. Intraoperative plan was made. We sized the size 7 femur, size 7 tibia, and a 10 spacer after acceptance of the intraoperative plan. The distal femoral cut was made with a Navio bur. Distal femoral cutting block was pinned in place and chamfer cuts were made. After this, attention was turned to the tibia. Remainder of the menisci removed with Bovie cautery. Tibial resection guide was pinned in place using Navio for placement. Tibial resection was made. A limited medial release was performed with subperiosteal dissection of the MCL off the medial plateau and resection of the medial tibial osteophyte. This balanced the knee well medially. Laterally, he was somewhat lax in extension, but we can make up for this with a constrained implant. The tibia was sized and found to be a size 7. A size 7 tibial trial was placed, pinned and punch. A size 7 femoral trial was placed and the box cut was made. This was then trialed with a size 11 and then a size 12 polyethylene. The size 12 polyethylene demonstrated 1-2 mm medially of laxity throughout range of motion of the knee, there was up to 4 mm laterally, particularly in extension, it was felt again we can make up for this with a constrained implant. A 9 mm of bone was resected from the posterior surface of the patella and a size 35 patellar trial button was placed. Knee was taken through range of motion, found to be stable, found to have a good patellar tracking. Trial components were removed. Bone ends were thoroughly irrigated with normal saline. The final size 7 tibia, size 7 Journey II BCS Oxinium femur and a size 35 patella were cemented in place using standard cementation techniques. While cement cured, a periarticular injection consisting of morphine, ropivacaine, epinephrine, Toradol was placed around the knee joint capsule. After the cement cured, tourniquet was deflated. Hemostasis was obtained with Bovie cautery. Final size 12 constrained polyethylene was placed. A gram of vancomycin was placed deep in the joint. Fascia was closed with 0 Vicryl. Skin was closed with 2-0 Vicryl, skin anne-marie and a BRENDA dressing was applied. The patient tolerated this procedure well and went to the recovery room under the care of anesthesia [facility] [address] [place] [address] OPERATIVE REPORT Name: DAWIT RIOJAS Room #: 459-P [facility] Bola Koo#: [id number] Admission: 12/31/20 Attend Phys: Darin Montalvo MD Discharge: 01/02/21 Date of : 59 Report #: [id number] postoperatively. Darin Montalvo MD /OCT <ELECTRONICALLY SIGNED> By: Darin Montalvo MD 01/12/21 0821 [id number] Darin Montalvo MD /nt
== END 2021-01-02 14:42 | disposition home or self-care (01) ==
LOC: OR 11:16 → 4W 16:05
PROVIDERS: Family Medicine; ADMIT Orthopaedic Surgery; ATTEND Orthopaedic Surgery
DX: M16.11 Unilateral primary osteoarthritis, right hip (principal); E11.9 Type 2 diabetes mellitus without complications; I10 Essential (primary) hypertension; E78.5 Hyperlipidemia, unspecified; G47.33 Obstructive sleep apnea (adult) (pediatric); E66.01 Morbid (severe) obesity due to excess calories; Z74.09 Other reduced mobility; Z98.84 Bariatric surgery status; Z79.899 Other long term (current) drug therapy; Z68.39 Body mass index [BMI] 39.0-39.9, adult
CPT/HCPCS: 50010; 50101; 50415; 50954; 51130; 51225; 51320; 52001; 52282; 53000; 53078; 53365; 56527; 56528; 57095; 57103; 57110; 57127; 57180; 62110; 62900; 64039; 70005